=== PATIENT | female | born 1945 | race Caucasian/White ===

== ENCOUNTER → 2017-05-18 05:00 | Outpatient (REF) | payer MEDICARE, OTHER, SELFPAY ==
[2017-05-18 09:34] LABS: Hemoglobin 11.1 g/dl (12.0-15.0); Mean Corpuscular Hgb 27.1 pg (27.0-32.0); Mean Corpuscular Volume 90.2 fL (81-99); Mean Platelet Vol. 10.6 fl (6.2-12.0); Platelet Count 274 K/mm3 (150-450); RBC Distribution Width CV 18.4 % (11.6-14.6); RBC Distribution Width SD 60.9 fl (35.1-43.9); White Blood Count 13.6 K/mm3 (4.4-11.0)
[2017-05-18 09:35] LABS: Scan Indicated on CBC? Y/N NO
[2017-05-18 09:38] LABS: International Normalized Ratio 2.5; Prothrombin Time (Protime)PT. 26.4 SECONDS (11.7-14.9)
[2017-05-18 09:40] LABS: Anion Gap 9 (5-15); BUN 38 mg/dL (7-18); BUN/Creat Ratio 17.9 RATIO (10-20); Chloride 102 mmol/L (98-107); Creatinine, Serum 2.12 mg/dL (0.55-1.02); EST Glomerular Filtration Rate 24 mL/min (>60); Est Glom Filt Rate - Afr Amer 29 mL/min (>60); Glucose 71 mg/dL (70-110); Potassium 4.1 mmol/L (3.5-5.1); Sodium Level 140 mmol/L (136-145)
[2017-05-18 09:53] LABS: Erythrocyte Sedimentation Rate 38 mm/hr (0-30)
== END ==
LOC: OLS.WHLTSB 05:00
PROVIDERS: Visit Provider Family Medicine
DX: I48.91 Unspecified atrial fibrillation (principal); I10 Essential (primary) hypertension; I77.6 Arteritis, unspecified
CPT/HCPCS: 36415; 80048; 85027; 85610; 85652

== ENCOUNTER → 2017-06-17 05:00 | Outpatient (REF) | payer MEDICARE, OTHER, SELFPAY ==
[2017-06-17 08:26] LABS: Hematocrit 33.3 % (37-47); Hemoglobin 10.4 g/dl (12.0-15.0); Mean Corp Hgb Conc 31.2 g/gl (32-36); Mean Corpuscular Hgb 28.2 pg (27.0-32.0); Mean Corpuscular Volume 90.2 fL (81-99); Mean Platelet Vol. 11.1 fl (6.2-12.0); Platelet Count 255 K/mm3 (150-450); RBC Distribution Width CV 18.2 % (11.6-14.6); RBC Distribution Width SD 58.4 fl (35.1-43.9); Red Blood Count 3.69 M/mm3 (4.2-5.4); Scan Indicated on CBC? Y/N NO
[2017-06-17 08:34] LABS: Alanine Aminotransfer ALT/SGPT 17 U/L (13-56); Anion Gap 8 (5-15); BUN 37 mg/dL (7-18); BUN/Creat Ratio 17.6 RATIO (10-20); Calcium,Total 8.1 mg/dL (8.5-10.1); Chloride 100 mmol/L (98-107); EST Glomerular Filtration Rate 25 mL/min (>60); Est Glom Filt Rate - Afr Amer 30 mL/min (>60); Glucose 76 mg/dL (70-110); Potassium 4.1 mmol/L (3.5-5.1); Sodium Level 139 mmol/L (136-145)
[2017-06-17 08:38] LABS: Erythrocyte Sedimentation Rate 42 mm/hr (0-30)
[2017-06-17 09:05] LABS: International Normalized Ratio 3.1
== END ==
LOC: OLS.WHLTSB 05:00
PROVIDERS: Visit Provider Family Medicine
DX: I48.91 Unspecified atrial fibrillation (principal); I10 Essential (primary) hypertension; I67.7 Cerebral arteritis, not elsewhere classified
CPT/HCPCS: 36415; 80048; 84460; 85027; 85610; 85652

== ENCOUNTER → 2017-07-01 05:00 | Outpatient (REF) | payer MEDICARE, OTHER, SELFPAY ==
[2017-07-01 07:40] LABS: International Normalized Ratio 2.4; Prothrombin Time (Protime)PT. 25.5 SECONDS (11.7-14.9)
== END ==
LOC: OLS.WHLTSB 05:00
PROVIDERS: Visit Provider Family Medicine
DX: I48.91 Unspecified atrial fibrillation (principal)
CPT/HCPCS: 36415; 85610

== ENCOUNTER → 2017-07-15 05:00 | Outpatient (REF) | payer MEDICARE, OTHER, SELFPAY ==
[2017-07-15 08:58] LABS: Hematocrit 37.3 % (37-47); Hemoglobin 11.5 g/dl (12.0-15.0); Mean Corp Hgb Conc 30.8 g/gl (32-36); Mean Corpuscular Hgb 27.8 pg (27.0-32.0); Mean Corpuscular Volume 90.1 fL (81-99); Platelet Count 300 K/mm3 (150-450); RBC Distribution Width CV 17.5 % (11.6-14.6); RBC Distribution Width SD 58.1 fl (35.1-43.9); Red Blood Count 4.14 M/mm3 (4.2-5.4); Scan Indicated on CBC? Y/N NO; White Blood Count 14.4 K/mm3 (4.4-11.0)
[2017-07-15 09:03] LABS: Anion Gap 10 (5-15); BUN 40 mg/dL (7-18); BUN/Creat Ratio 18.5 RATIO (10-20); Calcium,Total 7.8 mg/dL (8.5-10.1); Chloride 99 mmol/L (98-107); Creatinine, Serum 2.16 mg/dL (0.55-1.02); EST Glomerular Filtration Rate 24 mL/min (>60); Est Glom Filt Rate - Afr Amer 29 mL/min (>60); Glucose 72 mg/dL (74-106); Potassium 4.1 mmol/L (3.5-5.1); Sodium Level 139 mmol/L (136-145)
[2017-07-15 09:10] LABS: Erythrocyte Sedimentation Rate 21 mm/hr (0-30)
[2017-07-15 09:16] LABS: International Normalized Ratio 2.9; Prothrombin Time (Protime)PT. 30.7 SECONDS (11.7-14.9)
== END ==
LOC: OLS.WHLTSB 05:00
PROVIDERS: Visit Provider Family Medicine
DX: I48.91 Unspecified atrial fibrillation (principal); I10 Essential (primary) hypertension; M31.6 Other giant cell arteritis
CPT/HCPCS: 36415; 80048; 85027; 85610; 85652

== ENCOUNTER → 2017-08-19 05:00 | Outpatient (REF) | payer MEDICARE, OTHER, SELFPAY ==
[2017-08-19 07:41] LABS: Anion Gap 7 (5-15); BUN 39 mg/dL (7-18); BUN/Creat Ratio 18.4 RATIO (10-20); Calcium,Total 7.9 mg/dL (8.5-10.1); Chloride 101 mmol/L (98-107); Creatinine, Serum 2.12 mg/dL (0.55-1.02); EST Glomerular Filtration Rate 24 mL/min (>60); Est Glom Filt Rate - Afr Amer 29 mL/min (>60); Glucose 76 mg/dL (74-106); Hematocrit 34.8 % (37-47); Hemoglobin 10.6 g/dl (12.0-15.0); Mean Corp Hgb Conc 30.5 g/gl (32-36); Mean Corpuscular Hgb 27.2 pg (27.0-32.0); Mean Corpuscular Volume 89.5 fL (81-99); Mean Platelet Vol. 10.7 fl (6.2-12.0); Platelet Count 271 K/mm3 (150-450); Potassium 3.8 mmol/L (3.5-5.1); RBC Distribution Width SD 55.7 fl (35.1-43.9); Red Blood Count 3.89 M/mm3 (4.2-5.4); Sodium Level 141 mmol/L (136-145); White Blood Count 13.4 K/mm3 (4.4-11.0)
[2017-08-19 07:46] LABS: Erythrocyte Sedimentation Rate 42 mm/hr (0-30); Scan Indicated on CBC? Y/N NO
[2017-08-19 07:49] LABS: International Normalized Ratio 2.6; Prothrombin Time (Protime)PT. 28.1 SECONDS (11.7-14.9)
== END ==
LOC: OLS.WHLTSB 05:00
PROVIDERS: Visit Provider Family Medicine
DX: I48.91 Unspecified atrial fibrillation (principal); I10 Essential (primary) hypertension; M31.6 Other giant cell arteritis
CPT/HCPCS: 36415; 80048; 85027; 85610; 85652

== ENCOUNTER → 2017-09-27 05:00 | Outpatient (REF) | payer MEDICARE, OTHER, SELFPAY ==
[2017-09-27 09:23] LABS: International Normalized Ratio 3.1; Prothrombin Time (Protime)PT. 32.4 SECONDS (11.7-14.9)
[2017-09-27 09:26] LABS: Erythrocyte Sedimentation Rate 20 mm/hr (0-30)
== END ==
LOC: OLS.WHLTSB 05:00
PROVIDERS: Visit Provider Family Medicine
DX: I48.91 Unspecified atrial fibrillation (principal); M31.6 Other giant cell arteritis
CPT/HCPCS: 36415; 85610; 85652

== ENCOUNTER → 2017-10-12 05:00 | Outpatient (REF) | payer MEDICARE, OTHER, SELFPAY ==
[2017-10-12 09:39] LABS: International Normalized Ratio 3.1; Prothrombin Time (Protime)PT. 32.4 SECONDS (11.7-14.9)
== END ==
LOC: OLS.WHLTSB 05:00
PROVIDERS: Visit Provider Family Medicine
DX: I48.91 Unspecified atrial fibrillation (principal); Z79.01 Long term (current) use of anticoagulants
CPT/HCPCS: 36415; 85610

== ENCOUNTER → 2017-10-22 05:25 | Outpatient (REF) | payer MEDICARE, OTHER, SELFPAY ==
[2017-10-25 08:50] LABS: Hematocrit 38.4 % (37-47); Hemoglobin 11.8 g/dl (12.0-15.0); Mean Corpuscular Volume 88.7 fL (81-99); Red Blood Count 4.33 M/mm3 (4.2-5.4); White Blood Count 14.2 K/mm3 (4.4-11.0)
[2017-10-25 08:51] LABS: Erythrocyte Sedimentation Rate 54 mm/hr (0-30); International Normalized Ratio 2.2; Mean Corp Hgb Conc 30.7 g/gl (32-36); Mean Corpuscular Hgb 27.3 pg (27.0-32.0); Mean Platelet Vol. 10.8 fl (6.2-12.0); Platelet Count 288 K/mm3 (150-450); Prothrombin Time (Protime)PT. 24.2 SECONDS (11.7-14.9); RBC Distribution Width CV 17.8 % (11.6-14.6); RBC Distribution Width SD 57.9 fl (35.1-43.9); Scan Indicated on CBC? Y/N NO
[2017-10-25 08:56] LABS: BUN 43 mg/dL (7-18); BUN/Creat Ratio 17.3 RATIO (10-20); Chloride 103 mmol/L (98-107); Cholesterol 229 mg/dL (200); Creatinine, Serum 2.49 mg/dL (0.55-1.02); EST Glomerular Filtration Rate 20 mL/min (>60); Est Glom Filt Rate - Afr Amer 24 mL/min (>60); Glucose 80 mg/dL (74-106); Sodium Level 143 mmol/L (136-145); Triglycerides 73 mg/dL; Very Low Density Lipoprotein 15 mg/dL (5-40)
[2017-10-25 08:57] LABS: Anion Gap 11 (5-15); High Density Lipoprotein 88 mg/dL
== END ==
LOC: OLS.WHLTSB 05:25
PROVIDERS: Visit Provider Family Medicine
DX: I48.91 Unspecified atrial fibrillation (principal); I10 Essential (primary) hypertension; E11.9 Type 2 diabetes mellitus without complications; E78.5 Hyperlipidemia, unspecified; E03.9 Hypothyroidism, unspecified; M31.6 Other giant cell arteritis
CPT/HCPCS: 36415; 80048; 80061; 84443; 85027; 85610; 85652

== ENCOUNTER → 2017-11-19 05:00 | Outpatient (REF) | payer MEDICARE, OTHER, SELFPAY ==
[2017-11-19 08:14] LABS: International Normalized Ratio 2.2; Prothrombin Time (Protime)PT. 24.2 SECONDS (11.7-14.9)
[2017-11-19 08:26] LABS: Alanine Aminotransfer ALT/SGPT 17 U/L (13-56); Anion Gap 9 (5-15); BUN 35 mg/dL (7-18); BUN/Creat Ratio 16.1 RATIO (10-20); Calcium,Total 7.9 mg/dL (8.5-10.1); Chloride 104 mmol/L (98-107); Creatinine, Serum 2.17 mg/dL (0.55-1.02); EST Glomerular Filtration Rate 24 mL/min (>60); Est Glom Filt Rate - Afr Amer 29 mL/min (>60); Glucose 78 mg/dL (74-106); Potassium 4.4 mmol/L (3.5-5.1); Sodium Level 145 mmol/L (136-145)
== END ==
LOC: OLS.WHLTSB 05:00
PROVIDERS: Visit Provider Family Medicine
DX: I48.91 Unspecified atrial fibrillation (principal); I10 Essential (primary) hypertension; Z79.01 Long term (current) use of anticoagulants
CPT/HCPCS: 36415; 80048; 84460; 85610

== ENCOUNTER → 2017-12-20 05:00 | Outpatient (REF) | payer MEDICARE, OTHER, SELFPAY ==
[2017-12-20 09:58] LABS: Erythrocyte Sedimentation Rate 38 mm/hr (0-30)
[2017-12-20 10:00] LABS: Hematocrit 37.8 % (37-47); Hemoglobin 11.3 g/dl (12.0-15.0); Mean Corp Hgb Conc 29.9 g/gl (32-36); Mean Corpuscular Hgb 26.7 pg (27.0-32.0); Mean Corpuscular Volume 89.4 fL (81-99); Mean Platelet Vol. 10.8 fl (6.2-12.0); Platelet Count 250 K/mm3 (150-450); RBC Distribution Width CV 17.9 % (11.6-14.6); RBC Distribution Width SD 58.4 fl (35.1-43.9); Red Blood Count 4.23 M/mm3 (4.2-5.4); White Blood Count 12.9 K/mm3 (4.4-11.0)
[2017-12-20 10:01] LABS: International Normalized Ratio 1.9; Prothrombin Time (Protime)PT. 21.9 SECONDS (11.7-14.9); Scan Indicated on CBC? Y/N NO
[2017-12-20 10:02] LABS: Anion Gap 11 (5-15); BUN 36 mg/dL (7-18); BUN/Creat Ratio 16.8 RATIO (10-20); Chloride 103 mmol/L (98-107); Creatinine, Serum 2.14 mg/dL (0.55-1.02); EST Glomerular Filtration Rate 24 mL/min (>60); Est Glom Filt Rate - Afr Amer 29 mL/min (>60); Glucose 79 mg/dL (74-106); Potassium 3.9 mmol/L (3.5-5.1); Sodium Level 146 mmol/L (136-145)
== END ==
LOC: OLS.WHLTSB 05:00
PROVIDERS: Visit Provider Family Medicine
DX: I48.91 Unspecified atrial fibrillation (principal); I10 Essential (primary) hypertension; Z79.01 Long term (current) use of anticoagulants
CPT/HCPCS: 36415; 80048; 85027; 85610; 85652

== ENCOUNTER → 2018-01-18 05:00 | Outpatient (REF) | payer MEDICARE, OTHER, SELFPAY ==
[2018-01-18 09:38] LABS: International Normalized Ratio 2.1; Prothrombin Time (Protime)PT. 23.6 SECONDS (11.7-14.9)
[2018-01-18 09:54] LABS: Erythrocyte Sedimentation Rate 23 mm/hr (0-30)
== END ==
LOC: OLS.WHLTSB 05:00
PROVIDERS: Visit Provider Family Medicine
DX: I48.91 Unspecified atrial fibrillation (principal); M31.6 Other giant cell arteritis
CPT/HCPCS: 36415; 85610; 85652

== ENCOUNTER → 2018-02-17 04:00 | Outpatient (REF) | payer MEDICARE, OTHER, SELFPAY ==
[2018-02-17 07:43] LABS: Hematocrit 32.8 % (37-47); Mean Corp Hgb Conc 30.5 g/gl (32-36); Mean Corpuscular Hgb 27.2 pg (27.0-32.0); Mean Corpuscular Volume 89.1 fL (81-99); Mean Platelet Vol. 11.1 fl (6.2-12.0); Platelet Count 235 K/mm3 (150-450); RBC Distribution Width CV 17.7 % (11.6-14.6); RBC Distribution Width SD 56.4 fl (35.1-43.9); Red Blood Count 3.68 M/mm3 (4.2-5.4); White Blood Count 13.1 K/mm3 (4.4-11.0)
[2018-02-17 07:46] LABS: Scan Indicated on CBC? Y/N NO
[2018-02-17 07:49] LABS: Erythrocyte Sedimentation Rate 28 mm/hr (0-30)
[2018-02-17 08:04] LABS: Alanine Aminotransfer ALT/SGPT 16 U/L (13-56); Anion Gap 9 (5-15); BUN 34 mg/dL (7-18); BUN/Creat Ratio 15.7 RATIO (10-20); Calcium,Total 7.9 mg/dL (8.5-10.1); Chloride 104 mmol/L (98-107); Creatinine, Serum 2.16 mg/dL (0.55-1.02); EST Glomerular Filtration Rate 24 mL/min (>60); Est Glom Filt Rate - Afr Amer 29 mL/min (>60); Glucose 77 mg/dL (74-106); Potassium 4.1 mmol/L (3.5-5.1); Sodium Level 143 mmol/L (136-145); Thyroid Stim Hormone (TSH) 1.13 uIU/mL (0.358-3.74)
[2018-02-17 09:03] LABS: International Normalized Ratio 2.5
== END ==
LOC: OLS.WHLTSB 04:00
PROVIDERS: Visit Provider Family Medicine
DX: I48.91 Unspecified atrial fibrillation (principal); I10 Essential (primary) hypertension; E78.5 Hyperlipidemia, unspecified; E03.9 Hypothyroidism, unspecified; M31.6 Other giant cell arteritis
CPT/HCPCS: 36415; 80048; 84443; 84460; 85027; 85610; 85652

== ENCOUNTER → 2018-03-18 05:00 | Outpatient (REF) | payer MEDICARE, OTHER, SELFPAY ==
[2018-03-18 08:43] LABS: Erythrocyte Sedimentation Rate 36 mm/hr (0-30)
[2018-03-18 09:00] LABS: International Normalized Ratio 2.9; Prothrombin Time (Protime)PT. 30.1 SECONDS (11.7-14.9)
== END ==
LOC: OLS.WHLTSB 05:00
PROVIDERS: Visit Provider Family Medicine
DX: I48.91 Unspecified atrial fibrillation (principal); M31.6 Other giant cell arteritis
CPT/HCPCS: 36415; 85610; 85652

== ENCOUNTER → 2018-04-18 04:00 | Outpatient (REF) | payer MEDICARE, OTHER, SELFPAY ==
[2018-04-18 07:38] LABS: International Normalized Ratio 2.7; Prothrombin Time (Protime)PT. 28.9 SECONDS (11.7-14.9)
[2018-04-18 08:00] LABS: Anion Gap 10 (5-15); BUN 31 mg/dL (7-18); BUN/Creat Ratio 15.4 RATIO (10-20); Calcium,Total 7.9 mg/dL (8.5-10.1); Chloride 105 mmol/L (98-107); Cholesterol 204 mg/dL (200); Creatinine, Serum 2.01 mg/dL (0.55-1.02); EST Glomerular Filtration Rate 26 mL/min (>60); Est Glom Filt Rate - Afr Amer 31 mL/min (>60); Glucose 73 mg/dL (74-106); High Density Lipoprotein 81 mg/dL; Potassium 4.1 mmol/L (3.5-5.1); Sodium Level 145 mmol/L (136-145); Thyroid Stim Hormone (TSH) 0.83 uIU/mL (0.358-3.74); Triglycerides 91 mg/dL; Very Low Density Lipoprotein 18 mg/dL (5-40)
[2018-04-18 08:32] LABS: Erythrocyte Sedimentation Rate 12 mm/hr (0-30)
[2018-04-18 08:33] LABS: Hematocrit 35.4 % (37-47); Hemoglobin 10.5 g/dl (12.0-15.0); Mean Corp Hgb Conc 29.7 g/gl (32-36); Mean Corpuscular Hgb 25.8 pg (27.0-32.0); Mean Platelet Vol. 10.8 fl (6.2-12.0); Platelet Count 256 K/mm3 (150-450); RBC Distribution Width CV 17.5 % (11.6-14.6); RBC Distribution Width SD 55.3 fl (35.1-43.9); Red Blood Count 4.07 M/mm3 (4.2-5.4); White Blood Count 13.3 K/mm3 (4.4-11.0)
[2018-04-18 08:37] LABS: Scan Indicated on CBC? Y/N NO
[2018-04-18 10:39] LABS: Hemoglobin A1c 6.2 % (4.2-6.3)
--- OUTSIDE RECORDS SUMMARY | 2018-06-11 02:29 | XMS RPT_ITS ---
:1945 Author Organization [place] Support Name Relationship Address Phone R Unavailable Unavailable Unavailable Priscilla, Kurt Unavailable / + [place] [id number] Raquel Jeffery Unavailable [address] + [place] [address] R Unavailable Unavailable Unavailable Priscilla, Kurt Unavailable / + [place] [id number] Jeffery García Unavailable [address] + [place] [address] R Unavailable Unavailable Unavailable Priscilla, Kurt Unavailable / + [place] [address] Raquel Jeffery Unavailable [address] + [place] [address] R Unavailable Unavailable Unavailable Priscilla, Kurt Unavailable / + [place] [address] Raquel Jeffery Unavailable [address] + [place] [address] R Unavailable Unavailable Unavailable Priscilla, Kurt Unavailable / + [place] [address] Raquel Jeffery Unavailable [address] + [place] [address] R Unavailable Unavailable Unavailable Priscilla, Kurt Unavailable / + [place] [address] Raquel Jeffery Unavailable [address] + [place] [address] R Unavailable Unavailable Unavailable Priscilla, Kurt Unavailable / + [place] [address] Jeffery García Unavailable [address] + [place] [address] R Unavailable Unavailable Unavailable Priscilla, Kurt Unavailable / + [place] [address] [place], Jeffery Unavailable [address] + [place] [address] R Unavailable Unavailable Unavailable Priscilla, Kurt Unavailable / + [place] [address] [place], Jeffery Unavailable [address] + [place] [address] R Unavailable Unavailable Unavailable Priscilla, Kurt Unavailable / + [place] [address] [place], Jeffery Unavailable [address] + [place] [address] R Unavailable Unavailable Unavailable Priscilla, Kurt Unavailable / + [place] [address] [place], Jeffery Unavailable [address] + [place] [address] R Unavailable Unavailable Unavailable Priscilla, Kurt Unavailable / + [place] [address] [place], Jeffery Unavailable [address] + [place] [address] R Unavailable Unavailable Unavailable Priscilla, Kurt Unavailable / + [place] [address] [place], Jeffery Unavailable [address] + [place] [address] R Unavailable Unavailable Unavailable Priscilla, Kurt Unavailable / + [place] [address] [place], Jeffery Unavailable [address] + [place] [address] R Unavailable Unavailable Unavailable Priscilla, Kurt Unavailable / + [place] [address] [place], Jeffery Unavailable [address] + [place] [address] Care Team Providers Name Role Phone TIANA SOMERS Attending Unavailable TIANA SOMERS Referring Unavailable Nolasco, Reed Attending Unavailable Nolasco, Reed Attending Unavailable Nolasco, Reed Attending Unavailable Nolasco, Reed Attending Unavailable Nolasco, Reed Attending Unavailable Nolasco, Reed Attending Unavailable Nolasco, Reed Attending Unavailable Nolasco, Reed Attending Unavailable Nolasco, Reed Attending Unavailable Nolasco, Reed Attending Unavailable Nolasco, Reed Attending Unavailable Nolasco, Reed Attending Unavailable Nolasco, Reed Attending Unavailable Nolasco, Reed Attending Unavailable Nolasco, Reed Attending Unavailable TIANA SOMERS Attending Unavailable TIANA SOMERS Referring Unavailable TIANA SOMERS Attending Unavailable TIANA SOMERS Referring Unavailable Reed Nolasco Primary Care Unavailable TIANA SOMERS Attending Unavailable GauravReed Primary Care Unavailable PROBLEMS PROBLEMS DATE TYPE CONDITION / CODE ATTENDING STATUS SOURCE 04/28/2018 Unknown I10 - Essential Reed Nolasco (primary) Community hypertension / Hospital I10(ICD-10) Repository 04/28/2018 Unknown E78.5 - Reed Nolasco Active [place] Hyperlipidemia, Community unspecified / Hospital E78.5(ICD-10) Repository 04/28/2018 Unknown E03.9 - Reed Nolasco Active [place] Hypothyroidism, Community unspecified / Hospital E03.9(ICD-10) Repository 03/11/2018 Unknown M19.90 - Unspecified Reed Nolasco Active [place] osteoarthritis, Community unspecified site / Hospital M19.90(ICD-10) Repository 04/13/2018 Unknown I48.91 - Unspecified Reed Nolasco Active [place] atrial fibrillation Community / I48.91(ICD-10) Hospital Repository 04/13/2018 Unknown 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 of Community anticoagulants / Hospital Z79.01(ICD-10) Repository 09/26/2017 Unknown I67.7 - Cerebral Reed Nolasco Active [place] arteritis, not Community elsewhere classified Hospital / I67.7(ICD-10) Repository 06/04/2017 Active Unknown / LIZBET, Active [place] UNK(Unknown) [facility] Other [place] Repository 06/04/2017 Admitting Unknown / LIZBET, Active [facility] diagnosis UNK(Unknown) [facility] Repository PROCEDURES PROCEDURES No Procedure Records FoundRESULTS RESULTS PROTHROMBIN TIME W/INR Collected: 04/18/2018 Status: F Source: [place] 6:00 AM [facility] REPOSITORY TYPE CODE TESTS RESULT OUT OF RANGE REFERENCE UNITS LAB L300.4150 11.7-14.9 SECONDS High PROTIME 28.9 LAB L300.4200 Normal INR 2.7 Performed By: #### L300.3900 #### [place] [facility] [place], [address] BASIC METABOLIC Collected: 04/18/2018 Status: F Source: [place] PROFILE (BMP) 6:00 AM [facility] REPOSITORY TYPE CODE TESTS RESULT OUT OF RANGE REFERENCE UNITS LAB L501.0100 74-106 mg/dL Low GLU 73 Result Comment: Please note revised GLUCOSE reference range effective 2017. LAB L501.1000 7-18 mg/dL High BUN 31 LAB L501.1100 0.55-1.02 mg/dL High CREAT,SERUM 2.01 Result Comment: The validity of the calculated GFR AND GFRAA in patients over 70 years has not been determined. Clinical correlation is essential. LAB L501.1110 >60 mL/min Low EST GFR 26 Result Comment: Non- GFR Calc LAB L501.1115 >60 mL/min Low EST GFR - AA 31 Result Comment: GFR Calc LAB L501.1300 10-20 RATIO Normal BUN/CRE 15.4 LAB L501.2200 8.5-10.1 mg/dL Low CA 7.9 LAB L501.5300 136-145 mmol/L NA Normal 145 LAB L501.5600 3.5-5.1 mmol/L K Normal 4.1 LAB L501.5900 98-107 mmol/L CL Normal 105 LAB L501.6100 21.0-32.0 mmol/L Normal CO2 30.0 LAB L501.6200 5-15 Normal GAP 10 Performed By: #### L500.2500, L500.4100, L501.9520 #### [facility] [address] [place], [address] LIPID PROFILE Collected: 04/18/2018 Status: F Source: [place] 6:00 AM [facility] REPOSITORY TYPE CODE TESTS RESULT OUT OF RANGE REFERENCE UNITS LAB L501.4900 200 mg/dL High CHOL 204 Result Comment: <200 mg/dL Desirable 200-240 mg/dL Borderline >240 mg/dL High Risk LAB L501.5000 mg/dL Normal TRIG 91 Result Comment: The drugs N-Acetylcysteine and Metamizole may falsely depress this assay. Serum Triglycerides Reference Interval Normal <150 mg/dL Borderline high 150 - 199 mg/dL High 200 - 499 mg/dL Very High > or = 500 mg/dL LAB L501.6400 mg/dL Normal HDL 81 Result Comment: The drugs N-Acetylcysteine and Metamizole may falsely depress this assay. Reference Range HDL <40 mg/dL Low HDL Cholesterol HDL >or= 60 mg/dL High HDL Cholesterol LAB L501.6500 0-130 mg/dL Normal LDL 105 LAB L501.6600 5-40 mg/dL Normal VLDL 18 Performed By: #### L500.2500, L500.4100, L501.9520 #### [facility] [address] [place], [place], [id number] THYROID STIM HORMONE Collected: 04/18/2018 Status: F Source: [place] (TSH) 6:00 AM [facility] REPOSITORY TYPE CODE TESTS RESULT OUT OF RANGE REFERENCE UNITS LAB L501.9520 0.358-3.74 uIU/mL Normal TSH 0.83 Performed By: #### L500.2500, L500.4100, L501.9520 #### [facility] [address] [place], [place], [id number] CBC-COMPLETE BLOOD CNT Collected: 04/18/2018 Status: F Source: [place] NO DIFF 6:00 AM [facility] REPOSITORY TYPE CODE TESTS RESULT OUT OF RANGE REFERENCE UNITS LAB L100.1000 4.4-11.0 K/mm3 High WBC 13.3 LAB L100.1200 4.2-5.4 M/mm3 Low RBC 4.07 LAB L100.1300 12.0-15.0 g/dl Low HGB 10.5 LAB L100.1400 37-47 % Low HCT 35.4 LAB L100.1500 81-99 fL Normal MCV 87.0 LAB L100.1600 27.0-32.0 pg Low MCH 25.8 LAB L100.1700 32-36 g/gl Low MCHC 29.7 LAB L100.1810 11.6-14.6 % High RDW CV 17.5 LAB L100.1820 35.1-43.9 fl High RDW SD 55.3 LAB L100.1900 150-450 K/mm3 Normal PLT 256 LAB L100.2000 6.2-12.0 fl Normal MPV 10.8 Performed By: #### L100.0500, L101.9900 #### [facility] [address] [place], [address] ERYTHROCYTE SED RATE Collected: 04/18/2018 Status: F Source: [place] 6:00 AM [facility] REPOSITORY TYPE CODE TESTS RESULT OUT OF RANGE REFERENCE UNITS LAB L102.0000 0-30 mm/hr Normal SED RATE 12 Performed By: #### L100.0500, L101.9900 #### [facility] [address] [place], [address] HEMOGLOBIN A1C Collected: 04/18/2018 Status: F Source: [place] 6:00 AM [facility] REPOSITORY TYPE CODE TESTS RESULT OUT OF RANGE REFERENCE UNITS LAB L501.9985 4.2-6.3 % Normal HGB A1C 6.2 Performed By: #### L501.9985 #### [facility] [address] [place], [address] ERYTHROCYTE SED RATE Collected: 03/18/2018 Status: F Source: [place] 6:50 AM [facility] REPOSITORY Order Comment: 43(ZION) TYPE CODE TESTS RESULT OUT OF RANGE REFERENCE UNITS LAB L102.0000 0-30 mm/hr High SED RATE 36 Performed By: #### L101.9900 #### [facility] [address] [place], [address] PROTHROMBIN TIME W/INR Collected: 03/18/2018 Status: F Source: [place] 6:50 AM [facility] REPOSITORY Order Comment: 43(ZION) TYPE CODE TESTS RESULT OUT OF RANGE REFERENCE UNITS LAB L300.4150 11.7-14.9 SECONDS High PROTIME 30.1 LAB L300.4200 Normal INR 2.9 Performed By: #### L300.3900 #### [facility] [address] [place], [address] PROTHROMBIN TIME W/INR Collected: 02/17/2018 Status: F Source: [place] 8:05 AM [facility] REPOSITORY Order Comment: ROOM 46 TYPE CODE TESTS RESULT OUT OF RANGE REFERENCE UNITS LAB L300.4150 11.7-14.9 SECONDS High PROTIME 27.0 LAB L300.4200 Normal INR 2.5 Performed By: #### L300.3900 #### [facility] [address] [place], [place], [id number] CBC-COMPLETE BLOOD CNT Collected: 02/17/2018 Status: F Source: [place] NO DIFF 6:30 AM [facility] REPOSITORY Order Comment: ROOM 46 TYPE CODE TESTS RESULT OUT OF RANGE REFERENCE UNITS LAB L100.1000 4.4-11.0 K/mm3 High WBC 13.1 LAB L100.1200 4.2-5.4 M/mm3 Low RBC 3.68 LAB L100.1300 12.0-15.0 g/dl Low HGB 10.0 LAB L100.1400 37-47 % Low HCT 32.8 LAB L100.1500 81-99 fL Normal MCV 89.1 LAB L100.1600 27.0-32.0 pg Normal MCH 27.2 LAB L100.1700 32-36 g/gl Low MCHC 30.5 LAB L100.1810 11.6-14.6 % High RDW CV 17.7 LAB L100.1820 35.1-43.9 fl High RDW SD 56.4 LAB L100.1900 150-450 K/mm3 Normal PLT 235 LAB L100.2000 6.2-12.0 fl Normal MPV 11.1 Performed By: #### L100.0500, L101.9900 #### [facility] [address] [facility] [place], [place], [id number] ERYTHROCYTE SED RATE Collected: 02/17/2018 Status: F Source: [place] 6:30 AM [facility] REPOSITORY Order Comment: ROOM 46 TYPE CODE TESTS RESULT OUT OF RANGE REFERENCE UNITS LAB L102.0000 0-30 mm/hr Normal SED RATE 28 Performed By: #### L100.0500, L101.9900 #### [facility] [address] [place], [place], [id number] BASIC METABOLIC Collected: 02/17/2018 Status: F Source: [place] PROFILE (BMP) 6:30 AM [facility] REPOSITORY Order Comment: ROOM 46 TYPE CODE TESTS RESULT OUT OF RANGE REFERENCE UNITS LAB L501.0100 74-106 mg/dL Normal GLU 77 Result Comment: Please note revised GLUCOSE reference range effective 2017. LAB L501.1000 7-18 mg/dL High BUN 34 LAB L501.1100 0.55-1.02 mg/dL High CREAT,SERUM 2.16 Result Comment: The validity of the calculated GFR AND GFRAA in patients over 70 years has not been determined. Clinical correlation is essential. LAB L501.1110 >60 mL/min Low EST GFR 24 Result Comment: Non- GFR Calc LAB L501.1115 >60 mL/min Low EST GFR - AA 29 Result Comment: GFR Calc LAB L501.1300 10-20 RATIO Normal BUN/CRE 15.7 LAB L501.2200 8.5-10.1 mg/dL Low CA 7.9 LAB L501.5300 136-145 mmol/L NA Normal 143 LAB L501.5600 3.5-5.1 mmol/L K Normal 4.1 LAB L501.5900 98-107 mmol/L CL Normal 104 LAB L501.6100 21.0-32.0 mmol/L Normal CO2 30.0 LAB L501.6200 5-15 Normal GAP 9 Performed By: #### L500.2500, L501.4405, L501.9520 #### [facility] [address] [facility] [place], [place], [id number] ALANINE AMINOTRANSFERAS Collected: 02/17/2018 Status: F Source: [place] (SGPT) 6:30 AM [facility] REPOSITORY Order Comment: ROOM 46 TYPE CODE TESTS RESULT OUT OF RANGE REFERENCE UNITS LAB L501.4405 13-56 U/L Normal ALT 16 Performed By: #### L500.2500, L501.4405, L501.9520 #### [facility] [address] [place], [address] THYROID STIM HORMONE Collected: 02/17/2018 Status: F Source: [place] (TSH) 6:30 AM [facility] REPOSITORY Order Comment: ROOM 46 TYPE CODE TESTS RESULT OUT OF RANGE REFERENCE UNITS LAB L501.9520 0.358-3.74 uIU/mL Normal TSH 1.13 Performed By: #### L500.2500, L501.4405, L501.9520 #### [facility] [address] [place], [address] PROGRESS Observed: 2018 Status: COMPLETED Source: [place] 2:08 PM [facility] [place] REPOSITORY O ID: [id number] Author: Tiana Somers Service: (none) Author Type: Physician Type: Progress Notes Filed: 2018 3:28 PM Note Text: PERTINENT CARDIAC HISTORY Atrial fib - paroxysmal CVA - embolic HL HTN Temporal arteritis - 2016 Venous insufficiency ADHERENCE TO GUIDELINES GE-I or ARB for HF with prior LVEF<40 (NQF 0081) - N/A ASA or Plavix for ASHD (NQF 0067) - N/A Beta lili for ASHD with prior [place] or prior LVEF<40 (NQF 0070) - N/A Beta [place]ili for HF with prior LVEF<40 (NQF 0083) - N/A GE-I or ARB for ASHD with DM or prior LVEF<40 (NQF 0066) - N/A Statin therapy for ASHD or FHL or DM - met BMI documented and plan if >25 (NQF 0421) - lifestyle recommendation form Tobacco use screening and referral (NQF 0028) - lifestyle recommendation form Recommendation for whole food, plant based diet - lifestyle recommendation form CLINICAL IMPRESSION/PLAN: Kumar García is doing well. Atrial fibrillation is under good control. She is is advised to continue her amiodarone at low dose. She will have TSH and ALT for follow-up of possible toxicity. I encouraged her to continue her other medication. She is on an adequate dose of diuretic. She should continue to have regular eye examinations. I will see her in 6 months or as needed. Written and verbal health teaching given to patient, patient verbalizes understanding and agrees with treatment plan. DIAGNOSIS FOR VISIT: PAF Hypertension HISTORY OF PRESENT ILLNESS Kumar García returns for follow-up of her atrial fibrillation and hypertension. She reports stable exercise tolerance. Her confirms that she has had no recent symptoms of chest pain or shortness of breath. Her ankle edema has been stable. She's had no weeping. She denies recurrent TIAs. She's had no sensation of palpitations. ALLERGIES: ALLERGIES Allergen Reactions - Penicillins - Septra [Sulfamethox* CURRENT OUTPATIENT MEDICATIONS: furosemide (LASIX) 20 mg tablet Take 1 tablet by mouth twice daily. enalapril (VASOTEC) 5 mg tablet Take 0.5 tablets by mouth once daily. omeprazole (PRILOSEC) 20 mg capsule Take 20 mg by mouth once daily. alendronate (FOSAMAX) 35 mg tablet Take 35 mg by mouth once each week. traMADol (ULTRAM) 50 mg tablet Take 50 mg by mouth at bedtime as needed. loperamide (IMODIUM) 2 mg cap(s) Take 2 mg by mouth four times daily as needed. metoprolol tartrate, short acting, (LOPRESSOR) 50 mg tablet Take 0.5 tablets by mouth twice daily. ammonium lactate (LAC-HYDRIN) 12 % cream Apply to affected area as needed. sertraline (ZOLOFT) 100 mg tablet Take 100 mg by mouth once daily. predniSONE (DELTASONE) 20 mg tablet Take 20 mg by mouth twice daily. buPROPion SR (ZYBAN SR; WELLBUTRIN SR) 150 mg 12 hr tablet Take 150 mg by mouth once daily. warfarin (COUMADIN) 1 mg tablet Take as directed ACETAMINOPHEN (TYLENOL ORAL) Take 500 mg by mouth every 6 hours as needed. One to 2 tablets levothyroxine (SYNTHROID) 88 mcg tablet Take 1 tablet by mouth daily before breakfast. pravastatin (PRAVACHOL) 20 mg tablet Take 1 tablet by mouth daily at bedtime. amiodarone (CORDARONE) 200 mg tablet Take 0.5 tablets by mouth once daily. Cholecalciferol, Vitamin D3, 2,000 unit tab Take 1,000 Units by mouth once daily. simethicone, chewable (MYLICON) 80 mg chewable tablet Take 80 mg by mouth every 6 hours as needed. metFORMIN (GLUCOPHAGE) 500 mg tablet Take 500 mg by mouth daily with dinner. senna (SENOKOT) 8.6 mg tab Take 8.6 mg by mouth twice daily as needed. INSULIN DETEMIR (LEVEMIR SUBCUTANEOUS) Inject 100 Units subcutaneously every evening. CALCIUM CARBONATE/VITAMIN D3 (VITAMIN D-3 ORAL) Take 1,000 Units by mouth once daily. IRON POLYSACCHARIDE COMPLEX (FERREX 150 ORAL) Take by mouth. insulin aspart (NOVOLOG) 100 unit/mL soln Inject subcutaneously once daily. Sliding scale citalopram (CELEXA) 20 mg tablet Take 1/2 a tab by mouth daily for 10 days then one a day. warfarin (COUMADIN) 4 mg tablet HOLD warfarin (COUMADIN) 3 mg tablet HOLD hydrochlorothiazide (HYDRODIURIL, ESIDRIX) 25 mg tablet Take 1 tablet by mouth once daily. Calcium Citrate-Vitamin D3 630-400 mg-unit Take 1 tablet by mouth once daily. Ferrous Sulfate (IRON) 27 mg iron tab Take 1 tablet by mouth once daily. PHYSICAL EXAMINATION: VITAL SIGNS: BP 140/77 Pulse 80 Chest: Clear to auscultation. Trachea is midline. Air entry is equal. Cardiac: Regular rhythm. S1 and S2 are normal. PMI is nondisplaced. There is a soft systolic ejection. Carotids are brisk without bruits. JVP is less than 10 cm. Abdomen: Soft and nontender. There are no pulsatile masses or bruits. No liver enlargement. Bowel sounds are active. Extremities: 2 plus edema. Legs are wrapped. There is no weeping. Pulses are difficult to feel due to the wrap. Recent labs were reviewed. Renal function is moderately impaired, but stable. ALT and TSH has not recently been performed. EKG shows sinus rhythm and is unchanged from 10/26/16. Electronically Signed: Tiana Somers MD 2018 2:08 PM CC: Reed Nolasco MD EKG1 Observed: 2018 Status: F Source: [place] 1:51 PM [facility] REPOSITORY NAME : KUMAR GARCÍA PID : [id number] : 1945 Gender : Female Race : ORD : Procedure Date : 2018 13:51:05 Edit Date : Feb 03 2018 08:30:44 Diagnosis:NORMAL SINUS RHYTHM STUDY DONE SITTING BORDERLINE ECG NO SIGNIFICANT CHANGE FROM PREVIOUS ECG Confirmed by TIANA SOMERS MD ([id number]) on 02/03/2018 8:30:41 AM Ventricular Rate : 74 BPM Atrial Rate : 74 BPM P-R Interval : 170 ms QRS Duration : 72 ms Q-T Interval : 412 ms QTC Calculation(Bezet) : 457 ms P [place] : 12 degrees R [place] : -3 degrees T [place] : 14 degrees Test Reason : Location : 136 : [place] Overread By : TIANA SOMERS MD Edited By : TIANA SOMERS MD Referred By : TIANA SOMERS Acquired by : HUMBERTO AG Observed: 2018 Status: COMPLETED Source: [place] 1:30 PM [facility] REPOSITORY Office Visit (CAWSTR) KUMAR GARCÍA ([id number]) 1945 F Date Time Provider Department 02/02/18 1:30 PM TIANA SOMERS During your visit today, we recorded the following information about you: Pulse Blood pressure 80/minute 140/77 Tiana Somers MD 2018 3:28 PM Signed PERTINENT CARDIAC HISTORY Atrial fib - paroxysmal CVA - embolic HL HTN Temporal arteritis - 2016 Venous insufficiency ADHERENCE TO GUIDELINES GE-I or ARB for HF with prior LVEF<40 (NQF 0081) - N/A ASA or Plavix for ASHD (NQF 0067) - N/A Beta lili for ASHD with prior [place] or prior LVEF<40 (NQF 0070) - N/A Beta lili for HF with prior LVEF<40 (NQF 0083) - N/A GE-I or ARB for ASHD with DM or prior LVEF<40 (NQF 0066) - N/A Statin therapy for ASHD or FHL or DM - met BMI documented and plan if >25 (NQF 0421) - lifestyle recommendation form Tobacco use screening and referral (NQF 0028) - lifestyle recommendation form Recommendation for whole food, plant based diet - lifestyle recommendation form CLINICAL IMPRESSION/PLAN: Kumar García is doing well. Atrial fibrillation is under good control. She is is advised to continue her amiodarone at low dose. She will have TSH and ALT for follow-up of possible toxicity. I encouraged her to continue her other medication. She is on an adequate dose of diuretic. She should continue to have regular eye examinations. I will see her in 6 months or as needed. Written and verbal health teaching given to patient, patient verbalizes understanding and agrees with treatment plan. DIAGNOSIS FOR VISIT: PAF Hypertension HISTORY OF PRESENT ILLNESS Kumar García returns for follow-up of her atrial fibrillation and hypertension. She reports stable exercise tolerance. Her confirms that she has had no recent symptoms of chest pain or shortness of breath. Her ankle edema has been stable. She's had no weeping. She denies recurrent TIAs. She's had no sensation of palpitations. ALLERGIES: ALLERGIES Allergen Reactions - Penicillins - Septra [Sulfamethox* CURRENT OUTPATIENT MEDICATIONS: furosemide (LASIX) 20 mg tablet Take 1 tablet by mouth twice daily. enalapril (VASOTEC) 5 mg tablet Take 0.5 tablets by mouth once daily. omeprazole (PRILOSEC) 20 mg capsule Take 20 mg by mouth once daily. alendronate (FOSAMAX) 35 mg tablet Take 35 mg by mouth once each week. traMADol (ULTRAM) 50 mg tablet Take 50 mg by mouth at bedtime as needed. loperamide (IMODIUM) 2 mg cap(s) Take 2 mg by mouth four times daily as needed. metoprolol tartrate, short acting, (LOPRESSOR) 50 mg tablet Take 0.5 tablets by mouth twice daily. ammonium lactate (LAC-HYDRIN) 12 % cream Apply to affected area as needed. sertraline (ZOLOFT) 100 mg tablet Take 100 mg by mouth once daily. predniSONE (DELTASONE) 20 mg tablet Take 20 mg by mouth twice daily. buPROPion SR (ZYBAN SR; WELLBUTRIN SR) 150 mg 12 hr tablet Take 150 mg by mouth once daily. warfarin (COUMADIN) 1 mg tablet Take as directed ACETAMINOPHEN (TYLENOL ORAL) Take 500 mg by mouth every 6 hours as needed. One to 2 tablets levothyroxine (SYNTHROID) 88 mcg tablet Take 1 tablet by mouth daily before breakfast. pravastatin (PRAVACHOL) 20 mg tablet Take 1 tablet by mouth daily at bedtime. amiodarone (CORDARONE) 200 mg tablet Take 0.5 tablets by mouth once daily. Cholecalciferol, Vitamin D3, 2,000 unit tab Take 1,000 Units by mouth once daily. simethicone, chewable (MYLICON) 80 mg chewable tablet Take 80 mg by mouth every 6 hours as needed. metFORMIN (GLUCOPHAGE) 500 mg tablet Take 500 mg by mouth daily with dinner. senna (SENOKOT) 8.6 mg tab Take 8.6 mg by mouth twice daily as needed. INSULIN DETEMIR (LEVEMIR SUBCUTANEOUS) Inject 100 Units subcutaneously every evening. CALCIUM CARBONATE/VITAMIN D3 (VITAMIN D-3 ORAL) Take 1,000 Units by mouth once daily. IRON POLYSACCHARIDE COMPLEX (FERREX 150 ORAL) Take by mouth. insulin aspart (NOVOLOG) 100 unit/mL soln Inject subcutaneously once daily. Sliding scale citalopram (CELEXA) 20 mg tablet Take 1/2 a tab by mouth daily for 10 days then one a day. warfarin (COUMADIN) 4 mg tablet HOLD warfarin (COUMADIN) 3 mg tablet HOLD hydrochlorothiazide (HYDRODIURIL, ESIDRIX) 25 mg tablet Take 1 tablet by mouth once daily. Calcium Citrate-Vitamin D3 630-400 mg-unit Take 1 tablet by mouth once daily. Ferrous Sulfate (IRON) 27 mg iron tab Take 1 tablet by mouth once daily. PHYSICAL EXAMINATION: VITAL SIGNS: BP 140/77 Pulse 80 Chest: Clear to auscultation. Trachea is midline. Air entry is equal. Cardiac: Regular rhythm. S1 and S2 are normal. PMI is nondisplaced. There is a soft systolic ejection. Carotids are brisk without bruits. JVP is less than 10 cm. Abdomen: Soft and nontender. There are no pulsatile masses or bruits. No liver enlargement. Bowel sounds are active. Extremities: 2 plus edema. Legs are wrapped. There is no weeping. Pulses are difficult to feel due to the wrap. Recent labs were reviewed. Renal function is moderately impaired, but stable. ALT and TSH has not recently been performed. EKG shows sinus rhythm and is unchanged from 10/26/16. Electronically Signed: Tiana Somers MD 2018 2:08 PM CC: MD Tiana Feliz MD 2018 2:09 PM Signed LIFESTYLE CHANGE A healthy lifestyle is the most important component of your overall treatment plan. Please give serious thought to the following areas and commit to making fdc changes. EAT A WHOLE FOOD, PLANT BASED DIET The nutrition your body gets is more important than the medicine you take. What matters most is the overall way you eat. We encourage you to minimize the use of animal products (which include dairy and all meats except fatty fish) and use whole, unprocessed plant foods to provide your protein, vitamins and other nutrients. We have a lot of information to share with you on this topic. This is not a diet. It is a way of life that you will keep with you. EXERCISE REGULARLY It is not important to spend hours in the gym, lifting weights and perspiring heavily. A total of 2-3 hours per week of aerobic (causing you to be moderately short of breath) exercise is sufficient to improve your health. Talk to us before you begin a new exercise program, if you have heart disease or experience shortness of breath or chest pain. REDUCE STRESS Chronic emotional and physical stress leads to disease. Ways of reducing stress include meditation, visualization, prayer, yoga and other forms of relaxation therapy. Consistency is the chaparro. Find a technique that works for you and do it every day. CULTIVATE RELATIONSHIPS Loneliness and isolation have a major negative impact on health. Seek out others who can love, care for and nurture you. Avoid hurtful relationships. MAINTAIN IDEAL BODY WEIGHT The best way to do this is to do all the things above. Our bodies naturally find the right weight if we keep moving and feed ourselves the right food. If your BMI is greater than 25, we strongly recommend a referral to a weight management program. Please speak to us or your family physician about available programs. AVOID NICOTINE IN ALL FORMS This includes all tobacco products, whether chewed, smoked, vaped, or rubbed on the skin. Smoking cessation programs, which can make use of tobacco substitutes, medications to suppress cravings and behavior management, are available. Please contact your family physician about programs in your area. Mark Anthony Reyes RN 02/04/2018 8:34 AM Signed [facility] Referring Provider: TIANA SOMERS [[id number]] Allergies As of Date: 2018 Noted Allergy Reaction PENICILLINS 05/27/2005 SEPTRA (SULFAMETHOXAZOLE-TRIMETHO*05/27/2005 Date Reviewed: 2018 Reviewed by: Mark Anthony Reyes RN - Fully Assessed Reason for Visit: Recheck [92] Primary Visit Diagnosis:PAF (paroxysmal atrial fibrillation) ([facility]) [I48.0] Other Visit Diagnoses:Chronic diastolic CHF (congestive heart failure) ([facility]) [I50.32] Hypertension, essential [I10] Order(s):ECG COMPLETE W INTERPRETATION [ECG01] Order #: [id number] FUTURE Prescriptions as of 2018 Sig: FUROSEMIDE 20 MG TABLET Take 1 tablet by mouth twice * ENALAPRIL MALEATE 5 MG TABLET Take 0.5 tablets by mouth onc* OMEPRAZOLE 20 MG CAPSULE,MARLENE* Take 20 mg by mouth once rhonda* ALENDRONATE 35 MG TABLET Take 35 mg by mouth once each* TRAMADOL 50 MG TABLET Take 50 mg by mouth at bedtim* LOPERAMIDE 2 MG CAPSULE Take 2 mg by mouth four times* METOPROLOL TARTRATE 50 MG TAB* Take 0.5 tablets by mouth twi* AMMONIUM LACTATE 12 % TOPICAL* Apply to affected area as ne* SERTRALINE 100 MG TABLET Take 100 mg by mouth once ayala* PREDNISONE 20 MG TABLET Take 20 mg by mouth twice ayala* BUPROPION HCL SR 150 MG TABLE* Take 150 mg by mouth once ayala* WARFARIN 1 MG TABLET Take as directed TYLENOL ORAL Take 500 mg by mouth every 6 * LEVOTHYROXINE 88 MCG TABLET Take 1 tablet by mouth daily * PRAVASTATIN 20 MG TABLET Take 1 tablet by mouth daily * AMIODARONE 200 MG TABLET Take 0.5 tablets by mouth onc* CHOLECALCIFEROL (VITAMIN D3) * Take 1,000 Units by mouth onc* SIMETHICONE 80 MG CHEWABLE TA* Take 80 mg by mouth every 6 h* METFORMIN 500 MG TABLET Take 500 mg by mouth daily wi* SENNOSIDES 8.6 MG TABLET Take 8.6 mg by mouth twice da* LEVEMIR SUBCUTANEOUS Inject 100 Units subcutaneous* VITAMIN D-3 ORAL Take 1,000 Units by mouth onc* FERREX 150 ORAL Take by mouth. INSULIN ASPART U-100 100 UNI* Inject subcutaneously once d* CITALOPRAM 20 MG TABLET Take 1/2 a tab by mouth daily* Patient not taking: Reported on 2018 WARFARIN 4 MG TABLET HOLD WARFARIN 3 MG TABLET HOLD HYDROCHLOROTHIAZIDE 25 MG TAB* Take 1 tablet by mouth once d* Patient not taking: Reported on 2018 CALCIUM CITRATE-VITAMIN D 630* Take 1 tablet by mouth once d* FERROUS SULFATE 27 MG IRON TA* Take 1 tablet by mouth once d* Patient not taking: Reported on 2018 Medication notes this encounter PREDNISONE 20 MG TABLET >> Mark Anthony Reyes RN 2018 1:47 PM >> MARK ANTHONY REYES RN WedFeb 02, 2018 1:47 PM 15mg daily More... Problem List As Of Date 2018 Noted Resolved Calculus of gallbladder without mention of chol* 02/19/2012 More... Benign Neoplasm of Colon [D12.6] INVALID FOR* Priority: C More... More... Encounter for routine gynecological examination*INVALID FOR* Priority: D Class: Chronic More... Essential hypertension, benign [I10] INVALID FOR* Priority: A More... Obesity [E66.9] Priority: B Mixed stress and urge urinary incontinence [N39* Priority: C Cerebral infarction (HCC) [I63.9] INVALID FOR* Priority: A More... Atrial fibrillation [I48.91] INVALID FOR* Priority: A More... Hypothyroidism (acquired) [E03.9] INVALID FOR* Priority: A Hyperlipidemia [E78.5] INVALID FOR* Priority: A Rash of unknown cause [R21] INVALID FOR* Iron deficiency anemia [D50.9] INVALID FOR* Priority: A More... Temporal arteritis (HCC) [M31.6] INVALID FOR* Priority: A Bilateral leg edema [R60.0] INVALID FOR* Depression [F32.9] INVALID FOR* Chronic diastolic CHF (congestive heart failure*INVALID FOR* Other instructions from your clinician: LIFESTYLE CHANGE A healthy lifestyle is the most important component of your overall treatment plan. Please give serious thought to the following areas and commit to making fdc changes. EAT A WHOLE FOOD, PLANT BASED DIET The nutrition your body gets is more important than the medicine you take. What matters most is the overall way you eat. We encourage you to minimize the use of animal products (which include dairy and all meats except fatty fish) and use whole, unprocessed plant foods to provide your protein, vitamins and other nutrients. We have a lot of information to share with you on this topic. This is not a diet. It is a way of life that you will keep with you. EXERCISE REGULARLY It is not important to spend hours in the gym, lifting weights and perspiring heavily. A total of 2-3 hours per week of aerobic (causing you to be moderately short of breath) exercise is sufficient to improve your health. Talk to us before you begin a new exercise program, if you have heart disease or experience shortness of breath or chest pain. REDUCE STRESS Chronic emotional and physical stress leads to disease. Ways of reducing stress include meditation, visualization, prayer, yoga and other forms of relaxation therapy. Consistency is the chaparro. Find a technique that works for you and do it every day. CULTIVATE RELATIONSHIPS Loneliness and isolation have a major negative impact on health. Seek out others who can love, care for and nurture you. Avoid hurtful relationships. MAINTAIN IDEAL BODY WEIGHT The best way to do this is to do all the things above. Our bodies naturally find the right weight if we keep moving and feed ourselves the right food. If your BMI is greater than 25, we strongly recommend a referral to a weight management program. Please speak to us or your family physician about available programs. AVOID NICOTINE IN ALL FORMS This includes all tobacco products, whether chewed, smoked, vaped, or rubbed on the skin. Smoking cessation programs, which can make use of tobacco substitutes, medications to suppress cravings and behavior management, are available. Please contact your family physician about programs in your area. Visit Notes: >> Mark Anthony Reyes RN Fri Feb 04, 2018 8:34 AM Status: Signed Copy of office visit note sent to [facility] Mark Anthony Reyes RN Follow-up and Disposition History Recorded Encounter Status:Closed by TIANA SOMERS MD on 02/02/18 CNNURSE Observed: 2018 Status: COMPLETED Source: [place] 11:30 AM [facility] REPOSITORY Nurse Visit ([facility]) KUMAR GARCÍA ([id number]) 1945 F Date Time Provider Department 02/02/18 11:30 AM NURSE CARD ADMIN [facility] During your visit today, we recorded the following information about you: Referring Provider: TIANA SOMERS [[id number]] Allergies As of Date: 2018 Noted Allergy Reaction PENICILLINS 05/27/2005 SEPTRA (SULFAMETHOXAZOLE-TRIMETHO*05/27/2005 Date Reviewed: 2018 Reviewed by: Mark Anthony Reyes RN - Fully Assessed Reason for Visit: Nurse Visit [792] Visit Diagnoses:PAF (paroxysmal atrial fibrillation) ([facility]) [I48.0] Chronic diastolic CHF (congestive heart failure) ([facility]) [I50.32] Hypertension, essential [I10] Prescriptions as of 2018 Sig: FUROSEMIDE 20 MG TABLET Take 1 tablet by mouth twice * ENALAPRIL MALEATE 5 MG TABLET Take 0.5 tablets by mouth onc* OMEPRAZOLE 20 MG CAPSULE,MARLENE* Take 20 mg by mouth once rhonda* ALENDRONATE 35 MG TABLET Take 35 mg by mouth once each* TRAMADOL 50 MG TABLET Take 50 mg by mouth at bedtim* SIMETHICONE 80 MG CHEWABLE TA* Take 80 mg by mouth every 6 h* LOPERAMIDE 2 MG CAPSULE Take 2 mg by mouth four times* METFORMIN 500 MG TABLET Take 500 mg by mouth daily wi* METOPROLOL TARTRATE 50 MG TAB* Take 0.5 tablets by mouth twi* SENNOSIDES 8.6 MG TABLET Take 8.6 mg by mouth twice da* AMMONIUM LACTATE 12 % TOPICAL* Apply to affected area as ne* LEVEMIR SUBCUTANEOUS Inject 100 Units subcutaneous* VITAMIN D-3 ORAL Take 1,000 Units by mouth onc* SERTRALINE 100 MG TABLET Take 100 mg by mouth once ayala* PREDNISONE 20 MG TABLET Take 20 mg by mouth twice ayala* FERREX 150 ORAL Take by mouth. BUPROPION HCL SR 150 MG TABLE* Take 150 mg by mouth once ayala* INSULIN ASPART U-100 100 UNI* Inject subcutaneously once d* WARFARIN 1 MG TABLET Take as directed CITALOPRAM 20 MG TABLET Take 1/2 a tab by mouth daily* Patient not taking: Reported on 2018 WARFARIN 4 MG TABLET HOLD WARFARIN 3 MG TABLET HOLD TYLENOL ORAL Take 500 mg by mouth every 6 * LEVOTHYROXINE 88 MCG TABLET Take 1 tablet by mouth daily * PRAVASTATIN 20 MG TABLET Take 1 tablet by mouth daily * HYDROCHLOROTHIAZIDE 25 MG TAB* Take 1 tablet by mouth once d* Patient not taking: Reported on 2018 AMIODARONE 200 MG TABLET Take 0.5 tablets by mouth onc* CALCIUM CITRATE-VITAMIN D 630* Take 1 tablet by mouth once d* CHOLECALCIFEROL (VITAMIN D3) * Take 1,000 Units by mouth onc* FERROUS SULFATE 27 MG IRON TA* Take 1 tablet by mouth once d* Patient not taking: Reported on 2018 More... Problem List As Of Date 2018 Noted Resolved Calculus of gallbladder without mention of chol* 02/19/2012 More... Benign Neoplasm of Colon [D12.6] INVALID FOR* Priority: C More... More... Encounter for routine gynecological examination*INVALID FOR* Priority: D Class: Chronic More... Essential hypertension, benign [I10] INVALID FOR* Priority: A More... Obesity [E66.9] Priority: B Mixed stress and urge urinary incontinence [N39* Priority: C Cerebral infarction (HCC) [I63.9] INVALID FOR* Priority: A More... Atrial fibrillation [I48.91] INVALID FOR* Priority: A More... Hypothyroidism (acquired) [E03.9] INVALID FOR* Priority: A Hyperlipidemia [E78.5] INVALID FOR* Priority: A Rash of unknown cause [R21] INVALID FOR* Iron deficiency anemia [D50.9] INVALID FOR* Priority: A More... Temporal arteritis (HCC) [M31.6] INVALID FOR* Priority: A Bilateral leg edema [R60.0] INVALID FOR* Depression [F32.9] INVALID FOR* Chronic diastolic CHF (congestive heart failure*INVALID FOR* Encounter Status:Closed by MARK ANTHONY REYES RN on 02/03/18 PROTHROMBIN TIME W/INR Collected: 01/18/2018 Status: F Source: [place] 6:10 AM [facility] REPOSITORY TYPE CODE TESTS RESULT OUT OF RANGE REFERENCE UNITS LAB L300.4150 11.7-14.9 SECONDS High PROTIME 23.6 LAB L300.4200 Normal INR 2.1 Performed By: #### L300.3900 #### [facility] [address] [place], [place], [address] [phone] ERYTHROCYTE SED RATE Collected: 01/18/2018 Status: F Source: [place] 6:10 AM [facility] REPOSITORY TYPE CODE TESTS RESULT OUT OF RANGE REFERENCE UNITS LAB L102.0000 0-30 mm/hr Normal SED RATE 23 Performed By: #### L101.9900 #### [facility] [address] [place], [address] ERYTHROCYTE SED RATE Collected: 12/20/2017 Status: F Source: [place] 6:40 AM [facility] REPOSITORY Order Comment: 46 TYPE CODE TESTS RESULT OUT OF RANGE REFERENCE UNITS LAB L102.0000 0-30 mm/hr High SED RATE 38 Performed By: #### L101.9900, L100.0500 #### [facility] [address] [place], [place], [id number] CBC-COMPLETE BLOOD CNT Collected: 12/20/2017 Status: F Source: [place] NO DIFF 6:40 AM [facility] REPOSITORY Order Comment: 46 TYPE CODE TESTS RESULT OUT OF RANGE REFERENCE UNITS LAB L100.1000 4.4-11.0 K/mm3 High WBC 12.9 LAB L100.1200 4.2-5.4 M/mm3 Normal RBC 4.23 LAB L100.1300 12.0-15.0 g/dl Low HGB 11.3 LAB L100.1400 37-47 % Normal HCT 37.8 LAB L100.1500 81-99 fL Normal MCV 89.4 LAB L100.1600 27.0-32.0 pg Low MCH 26.7 LAB L100.1700 32-36 g/gl Low MCHC 29.9 LAB L100.1810 11.6-14.6 % High RDW CV 17.9 LAB L100.1820 35.1-43.9 fl High RDW SD 58.4 LAB L100.1900 150-450 K/mm3 Normal PLT 250 LAB L100.2000 6.2-12.0 fl Normal MPV 10.8 Performed By: #### L101.9900, L100.0500 #### [facility] [address] [place], [place], [address] BASIC METABOLIC Collected: 12/20/2017 Status: F Source: [place] PROFILE (BMP) 6:40 AM [facility] REPOSITORY Order Comment: 46 TYPE CODE TESTS RESULT OUT OF RANGE REFERENCE UNITS LAB L501.0100 74-106 mg/dL Normal GLU 79 Result Comment: Please note revised GLUCOSE reference range effective 2017. LAB L501.1000 7-18 mg/dL High BUN 36 LAB L501.1100 0.55-1.02 mg/dL High CREAT,SERUM 2.14 Result Comment: The validity of the calculated GFR AND GFRAA in patients over 70 years has not been determined. Clinical correlation is essential. LAB L501.1110 >60 mL/min Low EST GFR 24 Result Comment: Non- GFR Calc LAB L501.1115 >60 mL/min Low EST GFR - AA 29 Result Comment: GFR Calc LAB L501.1300 10-20 RATIO Normal BUN/CRE 16.8 LAB L501.2200 8.5-10.1 mg/dL Low CA 8.0 LAB L501.5300 136-145 mmol/L High NA 146 LAB L501.5600 3.5-5.1 mmol/L K Normal 3.9 LAB L501.5900 98-107 mmol/L CL Normal 103 LAB L501.6100 21.0-32.0 mmol/L Normal CO2 32.0 LAB L501.6200 5-15 Normal GAP 11 Performed By: #### L500.2500 #### [facility] [address] [place], [address] PROTHROMBIN TIME W/INR Collected: 12/20/2017 Status: F Source: [place] 6:40 AM [facility] REPOSITORY Order Comment: 46 TYPE CODE TESTS RESULT OUT OF RANGE REFERENCE UNITS LAB L300.4150 11.7-14.9 SECONDS High PROTIME 21.9 LAB L300.4200 Normal INR 1.9 Performed By: #### L300.3900 #### [facility] [address] [place], [address] PROTHROMBIN TIME W/INR Collected: 11/19/2017 Status: F Source: [place] 7:00 AM [facility] REPOSITORY Order Comment: ROOM 46 TYPE CODE TESTS RESULT OUT OF RANGE REFERENCE UNITS LAB L300.4150 11.7-14.9 SECONDS High PROTIME 24.2 LAB L300.4200 Normal INR 2.2 Performed By: #### L300.3900 #### [facility] [address] [place], [address] BASIC METABOLIC Collected: 11/19/2017 Status: F Source: [place] PROFILE (BMP) 7:00 AM [facility] REPOSITORY Order Comment: ROOM 46 TYPE CODE TESTS RESULT OUT OF RANGE REFERENCE UNITS LAB L501.0100 74-106 mg/dL Normal GLU 78 Result Comment: Please note revised GLUCOSE reference range effective 2017. LAB L501.1000 7-18 mg/dL High BUN 35 LAB L501.1100 0.55-1.02 mg/dL High CREAT,SERUM 2.17 Result Comment: The validity of the calculated GFR AND GFRAA in patients over 70 years has not been determined. Clinical correlation is essential. LAB L501.1110 >60 mL/min Low EST GFR 24 Result Comment: Non- GFR Calc LAB L501.1115 >60 mL/min Low EST GFR - AA 29 Result Comment: GFR Calc LAB L501.1300 10-20 RATIO Normal BUN/CRE 16.1 LAB L501.2200 8.5-10.1 mg/dL Low CA 7.9 LAB L501.5300 136-145 mmol/L NA Normal 145 LAB L501.5600 3.5-5.1 mmol/L K Normal 4.4 LAB L501.5900 98-107 mmol/L CL Normal 104 LAB L501.6100 21.0-32.0 mmol/L Normal CO2 32.0 LAB L501.6200 5-15 Normal GAP 9 Performed By: #### L500.2500, L501.4405 #### [facility] [address] [place], [address] ALANINE AMINOTRANSFERAS Collected: 11/19/2017 Status: F Source: [place] (SGPT) 7:00 AM [facility] REPOSITORY Order Comment: ROOM 46 TYPE CODE TESTS RESULT OUT OF RANGE REFERENCE UNITS LAB L501.4405 13-56 U/L Normal ALT 17 Performed By: #### L500.2500, L501.4405 #### [facility] [address] [place], [address] HEMOGLOBIN A1C Collected: 11/02/2017 Status: F Source: [place] 6:35 AM [facility] REPOSITORY Order Comment: REDRAW, HgA1C WAS MISSED FROM 10/22/17 LABS TYPE CODE TESTS RESULT OUT OF RANGE REFERENCE UNITS LAB L501.9985 4.2-6.3 % Normal HGB A1C 6.0 Performed By: #### L501.9985 #### [facility] [address] [place], [address] BASIC METABOLIC Collected: 10/22/2017 Status: F Source: [place] PROFILE (BMP) 5:25 AM [facility] REPOSITORY Order Comment: RESULT(S) PREVIOUSLY REPORTED ON MANUAL REQUISITION DURING DOWNTIME. TYPE CODE TESTS RESULT OUT OF RANGE REFERENCE UNITS LAB L501.0100 74-106 mg/dL Normal GLU 80 Result Comment: Please note revised GLUCOSE reference range effective 2017. LAB L501.1000 7-18 mg/dL High BUN 43 LAB L501.1100 0.55-1.02 mg/dL High CREAT,SERUM 2.49 Result Comment: The validity of the calculated GFR AND GFRAA in patients over 70 years has not been determined. Clinical correlation is essential. LAB L501.1110 >60 mL/min Low EST GFR 20 LAB L501.1115 >60 mL/min Low EST GFR - AA 24 LAB L501.1300 10-20 RATIO Normal BUN/CRE 17.3 LAB L501.2200 8.5-10.1 mg/dL Low CA 8.0 LAB L501.5300 136-145 mmol/L Normal NA 143 LAB L501.5600 3.5-5.1 mmol/L Normal K 4.0 LAB L501.5900 98-107 mmol/L Normal CL 103 LAB L501.6100 21.0-32.0 mmol/L Normal CO2 29.0 LAB L501.6200 5-15 Normal GAP 11 Performed By: #### L500.2500, L500.4100, L501.9520 #### [facility] [address] [place], [address] LIPID PROFILE Collected: 10/22/2017 Status: F Source: [place] 5:25 AM [facility] REPOSITORY Order Comment: RESULT(S) PREVIOUSLY REPORTED ON MANUAL REQUISITION DURING DOWNTIME. TYPE CODE TESTS RESULT OUT OF RANGE REFERENCE UNITS LAB L501.4900 200 mg/dL High CHOL 229 Result Comment: <200 mg/dL Desirable 200-240 mg/dL Borderline >240 mg/dL High Risk LAB L501.5000 mg/dL Normal TRIG 73 Result Comment: The drugs N-Acetylcysteine and Metamizole may falsely depress this assay. Serum Triglycerides Reference Interval Normal <150 mg/dL Borderline high 150 - 199 mg/dL High 200 - 499 mg/dL Very High > or = 500 mg/dL LAB L501.6400 mg/dL Normal HDL 88 Result Comment: The drugs N-Acetylcysteine and Metamizole may falsely depress this assay. Reference Range HDL <40 mg/dL Low HDL Cholesterol HDL >or= 60 mg/dL High HDL Cholesterol LAB L501.6500 0-130 mg/dL Normal LDL 126 LAB L501.6600 5-40 mg/dL Normal VLDL 15 Performed By: #### L500.2500, L500.4100, L501.9520 #### [facility] [address] [place], [address] THYROID STIM HORMONE Collected: 10/22/2017 Status: F Source: [place] (TSH) 5:25 AM [facility] REPOSITORY Order Comment: RESULT(S) PREVIOUSLY REPORTED ON MANUAL REQUISITION DURING DOWNTIME. TYPE CODE TESTS RESULT OUT OF RANGE REFERENCE UNITS LAB L501.9520 0.358-3.74 uIU/mL Normal TSH 1.00 Performed By: #### L500.2500, L500.4100, L501.9520 #### [facility] [address] [facility] [place], [place], [id number] CBC-COMPLETE BLOOD CNT Collected: 10/22/2017 Status: F Source: [place] NO DIFF 5:25 AM [facility] REPOSITORY Order Comment: RESULT(S) PREVIOUSLY REPORTED ON MANUAL REQUISITION DURING DOWNTIME. TYPE CODE TESTS RESULT OUT OF RANGE REFERENCE UNITS LAB L100.1000 4.4-11.0 K/mm3 High WBC 14.2 LAB L100.1200 4.2-5.4 M/mm3 Normal RBC 4.33 LAB L100.1300 12.0-15.0 g/dl Low HGB 11.8 LAB L100.1400 37-47 % Normal HCT 38.4 LAB L100.1500 81-99 fL Normal MCV 88.7 LAB L100.1600 27.0-32.0 pg Normal MCH 27.3 LAB L100.1700 32-36 g/gl Low MCHC 30.7 LAB L100.1810 11.6-14.6 % High RDW CV 17.8 LAB L100.1820 35.1-43.9 fl High RDW SD 57.9 LAB L100.1900 150-450 K/mm3 Normal PLT 288 LAB L100.2000 6.2-12.0 fl Normal MPV 10.8 Performed By: #### L100.0500, L101.9900 #### [facility] [address] [place], [address] ERYTHROCYTE SED RATE Collected: 10/22/2017 Status: F Source: [place] 5:25 AM [facility] REPOS[facility] Order Comment: RESULT(S) PREVIOUSLY REPORTED ON MANUAL REQUISITION DURING DOWNTIME. TYPE CODE TESTS RESULT OUT OF RANGE REFERENCE UNITS LAB L102.0000 0-30 mm/hr High SED RATE 54 Performed By: #### L100.0500, L101.9900 #### [facility] [address] [place], [address] PROTHROMBIN TIME W/INR Collected: 10/22/2017 Status: F Source: [place] 5:25 AM [facility] REPOSITORY Order Comment: RESULT(S) PREVIOUSLY REPORTED ON MANUAL REQUISITION DURING DOWNTIME. TYPE CODE TESTS RESULT OUT OF RANGE REFERENCE UNITS LAB L300.4150 11.7-14.9 SECONDS High PROTIME 24.2 LAB L300.4200 Normal INR 2.2 Performed By: #### L300.3900 #### [facility] [address] [place], [address] PROTHROMBIN TIME W/INR Collected: 10/12/2017 Status: F Source: [place] 7:10 AM [facility] REPOSITORY Order Comment: 46 TYPE CODE TESTS RESULT OUT OF RANGE REFERENCE UNITS LAB L300.4150 11.7-14.9 SECONDS High PROTIME 32.4 LAB L300.4200 Normal INR 3.1 Performed By: #### L300.3900 #### [facility] [address] [place], [address] PROTHROMBIN TIME W/INR Collected: 09/27/2017 Status: F Source: [place] 6:20 AM [facility] REPOSITORY Order Comment: 46 TYPE CODE TESTS RESULT OUT OF RANGE REFERENCE UNITS LAB L300.4150 11.7-14.9 SECONDS High PROTIME 32.4 LAB L300.4200 Normal INR 3.1 Performed By: #### L300.3900 #### [facility] [address] [place], [address] ERYTHROCYTE SED RATE Collected: 09/27/2017 Status: F Source: [place] 6:20 AM [facility] REPOSITORY Order Comment: 46 TYPE CODE TESTS RESULT OUT OF RANGE REFERENCE UNITS LAB L102.0000 0-30 mm/hr Normal SED RATE 20 Performed By: #### L101.9900 #### [facility] [address] [place], [address] BASIC METABOLIC Collected: 08/19/2017 Status: F Source: [place] PROFILE (BMP) 6:05 AM [facility] REPOS[facility] Order Comment: 46 TYPE CODE TESTS RESULT OUT OF RANGE REFERENCE UNITS LAB L501.0100 74-106 mg/dL Normal GLU 76 Result Comment: Please note revised GLUCOSE reference range effective 2017. LAB L501.1000 7-18 mg/dL High BUN 39 LAB L501.1100 0.55-1.02 mg/dL High CREAT,SERUM 2.12 Result Comment: The validity of the calculated GFR AND GFRAA in patients over 70 years has not been determined. Clinical correlation is essential. LAB L501.1110 >60 mL/min Low EST GFR 24 Result Comment: Non- GFR Calc LAB L501.1115 >60 mL/min Low EST GFR - AA 29 Result Comment: GFR Calc LAB L501.1300 10-20 RATIO Normal BUN/CRE 18.4 LAB L501.2200 8.5-10.1 mg/dL Low CA 7.9 LAB L501.5300 136-145 mmol/L NA Normal 141 LAB L501.5600 3.5-5.1 mmol/L K Normal 3.8 LAB L501.5900 98-107 mmol/L CL Normal 101 LAB L501.6100 21.0-32.0 mmol/L High CO2 33.0 LAB L501.6200 5-15 Normal GAP 7 Performed By: #### L500.2500 #### [facility] [address] [place], [address] CBC-COMPLETE BLOOD CNT Collected: 08/19/2017 Status: F Source: [place] NO DIFF 6:05 AM [facility] REPOS[facility] Order Comment: 46 TYPE CODE TESTS RESULT OUT OF RANGE REFERENCE UNITS LAB L100.1000 4.4-11.0 K/mm3 High WBC 13.4 LAB L100.1200 4.2-5.4 M/mm3 Low RBC 3.89 LAB L100.1300 12.0-15.0 g/dl Low HGB 10.6 LAB L100.1400 37-47 % Low HCT 34.8 LAB L100.1500 81-99 fL Normal MCV 89.5 LAB L100.1600 27.0-32.0 pg Normal MCH 27.2 LAB L100.1700 32-36 g/gl Low MCHC 30.5 LAB L100.1810 11.6-14.6 % High RDW CV 17.0 LAB L100.1820 35.1-43.9 fl High RDW SD 55.7 LAB L100.1900 150-450 K/mm3 Normal PLT 271 LAB L100.2000 6.2-12.0 fl Normal MPV 10.7 Performed By: #### L100.0500, L101.9900 #### [facility] [address] [place], [place], [id number] ERYTHROCYTE SED RATE Collected: 08/19/2017 Status: F Source: LILI 6:05 AM [facility] Order Comment: 46 TYPE CODE TESTS RESULT OUT OF RANGE REFERENCE UNITS LAB L102.0000 0-30 mm/hr High SED RATE 42 Performed By: #### L100.0500, L101.9900 #### [facility] [address] [place], [place], [id number] PROTHROMBIN TIME W/INR Collected: 08/19/2017 Status: F Source: [place] 6:05 AM [facility] Order Comment: 46 TYPE CODE TESTS RESULT OUT OF RANGE REFERENCE UNITS LAB L300.4150 11.7-14.9 SECONDS High PROTIME 28.1 LAB L300.4200 Normal INR 2.6 Performed By: #### L300.3900 #### [facility] [address] [place], [place], [address] CBC-COMPLETE BLOOD CNT Collected: 07/15/2017 Status: F Source: [place] NO DIFF 6:15 AM [facility] Order Comment: 46 TYPE CODE TESTS RESULT OUT OF RANGE REFERENCE UNITS LAB L100.1000 4.4-11.0 K/mm3 High WBC 14.4 LAB L100.1200 4.2-5.4 M/mm3 Low RBC 4.14 LAB L100.1300 12.0-15.0 g/dl Low HGB 11.5 LAB L100.1400 37-47 % Normal HCT 37.3 LAB L100.1500 81-99 fL Normal MCV 90.1 LAB L100.1600 27.0-32.0 pg Normal MCH 27.8 LAB L100.1700 32-36 g/gl Low MCHC 30.8 LAB L100.1810 11.6-14.6 % High RDW CV 17.5 LAB L100.1820 35.1-43.9 fl High RDW SD 58.1 LAB L100.1900 150-450 K/mm3 Normal PLT 300 LAB L100.2000 6.2-12.0 fl Normal MPV 11.0 Performed By: #### L100.0500, L101.9900 #### [facility] [address] [place], [place], [address] ERYTHROCYTE SED RATE Collected: 07/15/2017 Status: F Source: [place] 6:15 AM [facility] Order Comment: 46 TYPE CODE TESTS RESULT OUT OF RANGE REFERENCE UNITS LAB L102.0000 0-30 mm/hr Normal SED RATE 21 Performed By: #### L100.0500, L101.9900 #### [facility] [address] [facility] [place], [place], [address] BASIC METABOLIC Collected: 07/15/2017 Status: F Source: [place] PROFILE (BMP) 6:15 AM [facility] Order Comment: 46 TYPE CODE TESTS RESULT OUT OF RANGE REFERENCE UNITS LAB L501.0100 74-106 mg/dL Low GLU 72 Result Comment: Please note revised GLUCOSE reference range effective 2017. LAB L501.1000 7-18 mg/dL High BUN 40 LAB L501.1100 0.55-1.02 mg/dL High CREAT,SERUM 2.16 Result Comment: The validity of the calculated GFR AND GFRAA in patients over 70 years has not been determined. Clinical correlation is essential. LAB L501.1110 >60 mL/min Low EST GFR 24 Result Comment: Non- GFR Calc LAB L501.1115 >60 mL/min Low EST GFR - AA 29 Result Comment: GFR Calc LAB L501.1300 10-20 RATIO Normal BUN/CRE 18.5 LAB L501.2200 8.5-10.1 mg/dL Low CA 7.8 LAB L501.5300 136-145 mmol/L NA Normal 139 LAB L501.5600 3.5-5.1 mmol/L K Normal 4.1 LAB L501.5900 98-107 mmol/L CL Normal 99 LAB L501.6100 21.0-32.0 mmol/L Normal CO2 30.0 LAB L501.6200 5-15 Normal GAP 10 Performed By: #### L500.2500 #### [facility] [address] [place], [place], [id number] PROTHROMBIN TIME W/INR Collected: 07/15/2017 Status: F Source: LILI 6:15 AM [facility] Order Comment: 46 TYPE CODE TESTS RESULT OUT OF RANGE REFERENCE UNITS LAB L300.4150 11.7-14.9 SECONDS High PROTIME 30.7 LAB L300.4200 Normal INR 2.9 Performed By: #### L300.3900 #### [facility] [address] [place], [place], [address] PROTHROMBIN TIME W/INR Collected: 07/01/2017 Status: F Source: LILI 6:44 AM [facility]POS[facility] Order Comment: ROOM 46 TYPE CODE TESTS RESULT OUT OF RANGE REFERENCE UNITS LAB L300.4150 11.7-14.9 SECONDS High PROTIME 25.5 LAB L300.4200 Normal INR 2.4 Performed By: #### L300.3900 #### [facility] [place], [place], [address] CBC-COMPLETE BLOOD CNT Collected: 06/17/2017 Status: F Source: [place] NO DIFF 6:18 AM [facility] Order Comment: 46 TYPE CODE TESTS RESULT OUT OF RANGE REFERENCE UNITS LAB L100.1000 4.4-11.0 K/mm3 High WBC 12.0 LAB L100.1200 4.2-5.4 M/mm3 Low RBC 3.69 LAB L100.1300 12.0-15.0 g/dl Low HGB 10.4 LAB L100.1400 37-47 % Low HCT 33.3 LAB L100.1500 81-99 fL Normal MCV 90.2 LAB L100.1600 27.0-32.0 pg Normal MCH 28.2 LAB L100.1700 32-36 g/gl Low MCHC 31.2 LAB L100.1810 11.6-14.6 % High RDW CV 18.2 LAB L100.1820 35.1-43.9 fl High RDW SD 58.4 LAB L100.1900 150-450 K/mm3 Normal PLT 255 LAB L100.2000 6.2-12.0 fl Normal MPV 11.1 Performed By: #### L100.0500, L101.9900 #### [facility] [address] [place], [place], [address] ERYTHROCYTE SED RATE Collected: 06/17/2017 Status: F Source: [place] 6:18 AM [facility] Order Comment: 46 TYPE CODE TESTS RESULT OUT OF RANGE REFERENCE UNITS LAB L102.0000 0-30 mm/hr High SED RATE 42 Performed By: #### L100.0500, L101.9900 #### [facility] [address] [place], [place], [address] BASIC METABOLIC Collected: 06/17/2017 Status: F Source: [place] PROFILE (BMP) 6:18 AM [facility] Order Comment: 46 TYPE CODE TESTS RESULT OUT OF RANGE REFERENCE UNITS LAB L501.0100 70-110 mg/dL Normal GLU 76 LAB L501.1000 7-18 mg/dL High BUN 37 LAB L501.1100 0.55-1.02 mg/dL High 2.10 CREAT,SERUM Result Comment: The validity of the calculated GFR AND GFRAA in patients over 70 years has not been determined. Clinical correlation is essential. LAB L501.1110 >60 mL/min Low EST GFR 25 Result Comment: Non- GFR Calc LAB L501.1115 >60 mL/min Low EST GFR - AA 30 Result Comment: GFR Calc LAB L501.1300 10-20 RATIO Normal BUN/CRE 17.6 LAB L501.2200 8.5-10.1 mg/dL Low CA 8.1 LAB L501.5300 136-145 mmol/L NA Normal 139 LAB L501.5600 3.5-5.1 mmol/L K Normal 4.1 LAB L501.5900 98-107 mmol/L CL Normal 100 LAB L501.6100 21.0-32.0 mmol/L Normal CO2 31.0 LAB L501.6200 5-15 Normal GAP 8 Performed By: #### L500.2500, L501.4405 #### [facility] [address] [place], [place], [address] ALANINE AMINOTRANSFERAS Collected: 06/17/2017 Status: F Source: RUTLEDGE (SGPT) 6:18 AM [facility] Order Comment: 46 TYPE CODE TESTS RESULT OUT OF RANGE REFERENCE UNITS LAB L501.4405 13-56 U/L Normal ALT 17 Result Comment: Please note revised ALT reference range effective 2017. Performed By: #### L500.2500, L501.4405 #### [facility] [address] [place], [place], [address] PROTHROMBIN TIME W/INR Collected: 06/17/2017 Status: F Source: R[place]LEDGE 6:18 AM [facility] Order Comment: 46 TYPE CODE TESTS RESULT OUT OF RANGE REFERENCE UNITS LAB L300.4150 11.7-14.9 SECONDS High PROTIME 31.0 LAB L300.4200 Normal INR 3.1 Performed By: #### L300.3900 #### [facility] [address] [place], [address] PROGRESS Observed: 06/04/2017 Status: COMPLETED Source: [place] 1:40 PM [facility]INIC OTHER CAMPUS REPOSITORY HNO ID: [id number] Author: Tiana Somers Service: (none) Author Type: Physician Type: Progress Notes Filed: 06/04/2017 4:58 PM Note Text: PERTINENT CARDIAC HISTORY Atrial fib - paroxysmal CVA - embolic HL HTN Temporal arteritis - 2016 Venous insufficiency ADHERENCE TO GUIDELINES GE-I or ARB for HF with prior LVEF<40 (NQF 0081) - N/A ASA or Plavix for ASHD (NQ 0067) - N/A Beta lili for ASHD with prior IL or prior LVEF<40 (NQF 0070) - N/A Beta lili for HF with prior LVEF<40 (NQF 0083) - N/A GE-I or ARB for ASHD with DM or prior LVEF<40 (NQF 0066) - N/A Statin therapy for ASHD or FHL or DM - met BMI documented and plan if >25 (NQ 0421) - lifestyle recommendation form Tobacco use screening and referral (NQ 0028) - lifestyle recommendation form Recommendation for whole food, plant based diet - lifestyle recommendation form CLINICAL IMPRESSION/PLAN: Kumar García is doing reasonably well. Her atrial fibrillation is controlled. She will undergo ALT for followup of her drug therapy. I've encouraged her to continue her current medication. She reports that she is not distressed by the amount of edema. She has no weeping or ulcerations. I've asked her to keep her legs elevated and consider wearing support stockings. It seems that she is destined to continue steroid therapy. I will see her in 8 months or as needed. If there is increased chest pain or shortness of breath, she's been advised to contact me. Written and verbal health teaching given to patient, patient verbalizes understanding and agrees with treatment plan. This note was generated using [employer] voice recognition system, and there may be some incorrect words, spellings, and punctuation that were not noted in checking the note before saving. DIAGNOSIS FOR VISIT: PAF HISTORY OF PRESENT ILLNESS Kumar García returns for follow-up of her atrial fibrillation. She reports that she has had no recent palpitations. Her edema has been stable. She is still on prednisone. She denies chest pain, orthopnea, syncope, TIAs, amaurosis and claudication. ALLERGIES: ALLERGIES Allergen Reactions - Penicillins - Septra [Sulfamethox* CURRENT OUTPATIENT MEDICATIONS: omeprazole (PRILOSEC) 20 mg capsule Take 20 mg by mouth once daily. alendronate (FOSAMAX) 35 mg tablet Take 35 mg by mouth once each week. traMADol (ULTRAM) 50 mg tablet Take 50 mg by mouth every 6 hours as needed. simethicone, chewable (MYLICON) 80 mg chewable tablet Take 80 mg by mouth every 6 hours as needed. loperamide (IMODIUM) 2 mg cap(s) Take 2 mg by mouth four times daily as needed. furosemide (LASIX) 20 mg tablet Take 2 tablets by mouth twice daily. metFORMIN (GLUCOPHAGE) 500 mg tablet Take 500 mg by mouth daily with dinner. enalapril (VASOTEC) 5 mg tablet Take 1 tablet by mouth once daily. metoprolol tartrate, short acting, (LOPRESSOR) 50 mg tablet Take 0.5 tablets by mouth twice daily. ammonium lactate (LAC-HYDRIN) 12 % cream Apply to affected area as needed. sertraline (ZOLOFT) 100 mg tablet Take 100 mg by mouth once daily. predniSONE (DELTASONE) 20 mg tablet Take 20 mg by mouth twice daily. IRON POLYSACCHARIDE COMPLEX (FERREX 150 ORAL) Take by mouth. buPROPion SR (ZYBAN SR; WELLBUTRIN SR) 150 mg 12 hr tablet Take 150 mg by mouth once daily. warfarin (COUMADIN) 1 mg tablet Take as directed warfarin (COUMADIN) 4 mg tablet HOLD warfarin (COUMADIN) 3 mg tablet HOLD ACETAMINOPHEN (TYLENOL ORAL) Take 500 mg by mouth every 6 hours as needed. One to 2 tablets levothyroxine (SYNTHROID) 88 mcg tablet Take 1 tablet by mouth daily before breakfast. pravastatin (PRAVACHOL) 20 mg tablet Take 1 tablet by mouth daily at bedtime. amiodarone (CORDARONE) 200 mg tablet Take 0.5 tablets by mouth once daily. Cholecalciferol, Vitamin D3, 2,000 unit tab Take 2,000 Units by mouth once daily. senna (SENOKOT) 8.6 mg tab Take 8.6 mg by mouth twice daily as needed. INSULIN DETEMIR (LEVEMIR SUBCUTANEOUS) Inject 100 Units subcutaneously every evening. CALCIUM CARBONATE/VITAMIN D3 (VITAMIN D-3 ORAL) Take 1,000 Units by mouth once daily. insulin aspart (NOVOLOG) 100 unit/mL soln Inject subcutaneously once daily. Sliding scale citalopram (CELEXA) 20 mg tablet Take 1/2 a tab by mouth daily for 10 days then one a day. hydrochlorothiazide (HYDRODIURIL, ESIDRIX) 25 mg tablet Take 1 tablet by mouth once daily. Calcium Citrate-Vitamin D3 630-400 mg-unit Take 1 tablet by mouth once daily. Ferrous Sulfate (IRON) 27 mg iron tab Take 1 tablet by mouth once daily. PHYSICAL EXAMINATION: VITAL SIGNS: BP 122/82 Pulse 70 Ht 5' 6 (1.68m) Wt 235 lb 8 oz (106.8kg) BMI 38.03 kg/(m2). Chest: Clear to percussion and auscultation. Trachea is midline. Air entry is equal. Cardiac: Regular rhythm. S1 and S2 are normal. PMI is nondisplaced. There is a soft systolic ejection murmur. Carotids are brisk without bruits. JVP is less than 10 cm. Abdomen: Soft and nontender. There are no pulsatile masses or bruits. No liver enlargement. Bowel sounds are active. Extremities: 2 plus pitting edema. Pulses are intact and symmetrical. Recent labs were reviewed. Renal function is moderately impaired, but stable. INR is therapeutic. TSH is normal. LDL was 82. 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 HL HTN Temporal arteritis - 2016 Venous insufficiency ADHERENCE TO GUIDELINES GE-I or ARB for HF with prior LVEFANDlt;40 (NQF 0081) - N/A ASA or Plavix for ASHD (NQF 0067) - N/A Beta lili for ASHD with prior IL or prior LVEFANDlt;40 (NQF 0070) - N/A Beta lili for HF with prior LVEFANDlt;40 ([facility] 0083) - N/A GE-I or ARB for ASHD with DM or prior LVEFANDlt;40 ([facility] 0066) - N/A Statin therapy for ASHD or FHL or DM - met BMI documented and plan if ANDgt;25 ([facility] 0421) - lifestyle recommendation form Tobacco use screening and referral ([facility] 0028) - lifestyle recommendation form Recommendation for whole food, plant based diet - lifestyle recommendation form CLINICAL IMPRESSION/PLAN: Kumar García is doing reasonably well. Her atrial fibrillation is controlled. She will undergo ALT for followup of her drug therapy. I've encouraged her to continue her current medication. She reports that she is not distressed by the amount of edema. She has no weeping or ulcerations. I've asked her to keep her legs elevated and consider wearing support stockings. It seems that she is destined to continue steroid therapy. I will see her in 8 months or as needed. If there is increased chest pain or shortness of breath, she's been advised to contact me. Written and verbal health teaching given to patient, patient verbalizes understanding and agrees with treatment plan. This note was generated using [employer] voice recognition system, and there may be some incorrect words, spellings, and punctuation that were not noted in checking the note before saving. DIAGNOSIS FOR VISIT: PAF HISTORY OF PRESENT ILLNESS Kumar García returns for follow-up of her atrial fibrillation. She reports that she has had no recent palpitations. Her edema has been stable. She is still on prednisone. She denies chest pain, orthopnea, syncope, TIAs, amaurosis and claudication. ALLERGIES: ALLERGIES Allergen Reactions - Penicillins - Septra [Sulfamethox* CURRENT OUTPATIENT MEDICATIONS: omeprazole (PRILOSEC) 20 mg capsule Take 20 mg by mouth once daily. alendronate (FOSAMAX) 35 mg tablet Take 35 mg by mouth once each week. traMADol (ULTRAM) 50 mg tablet Take 50 mg by mouth every 6 hours as needed. simethicone, chewable (MYLICON) 80 mg chewable tablet Take 80 mg by mouth every 6 hours as needed. loperamide (IMODIUM) 2 mg cap(s) Take 2 mg by mouth four times daily as needed. furosemide (LASIX) 20 mg tablet Take 2 tablets by mouth twice daily. metFORMIN (GLUCOPHAGE) 500 mg tablet Take 500 mg by mouth daily with dinner. enalapril (VASOTEC) 5 mg tablet Take 1 tablet by mouth once daily. metoprolol tartrate, short acting, (LOPRESSOR) 50 mg tablet Take 0.5 tablets by mouth twice daily. ammonium lactate (LAC-HYDRIN) 12 % cream Apply to affected area as needed. sertraline (ZOLOFT) 100 mg tablet Take 100 mg by mouth once daily. predniSONE (DELTASONE) 20 mg tablet Take 20 mg by mouth twice daily. IRON POLYSACCHARIDE COMPLEX (FERREX 150 ORAL) Take by mouth. buPROPion SR (ZYBAN SR; WELLBUTRIN SR) 150 mg 12 hr tablet Take 150 mg by mouth once daily. warfarin (COUMADIN) 1 mg tablet Take as directed warfarin (COUMADIN) 4 mg tablet HOLD warfarin (COUMADIN) 3 mg tablet HOLD ACETAMINOPHEN (TYLENOL ORAL) Take 500 mg by mouth every 6 hours as needed. One to 2 tablets levothyroxine (SYNTHROID) 88 mcg tablet Take 1 tablet by mouth daily before breakfast. pravastatin (PRAVACHOL) 20 mg tablet Take 1 tablet by mouth daily at bedtime. amiodarone (CORDARONE) 200 mg tablet Take 0.5 tablets by mouth once daily. Cholecalciferol, Vitamin D3, 2,000 unit tab Take 2,000 Units by mouth once daily. senna (SENOKOT) 8.6 mg tab Take 8.6 mg by mouth twice daily as needed. INSULIN DETEMIR (LEVEMIR SUBCUTANEOUS) Inject 100 Units subcutaneously every evening. CALCIUM CARBONATE/VITAMIN D3 (VITAMIN D-3 ORAL) Take 1,000 Units by mouth once daily. insulin aspart (NOVOLOG) 100 unit/mL soln Inject subcutaneously once daily. Sliding scale citalopram (CELEXA) 20 mg tablet Take 1/2 a tab by mouth daily for 10 days then one a day. hydrochlorothiazide (HYDRODIURIL, ESIDRIX) 25 mg tablet Take 1 tablet by mouth once daily. Calcium Citrate-Vitamin D3 630-400 mg-unit Take 1 tablet by mouth once daily. Ferrous Sulfate (IRON) 27 mg iron tab Take 1 tablet by mouth once daily. PHYSICAL EXAMINATION: VITAL SIGNS: BP 122/82 Pulse 70 Ht 5' 6ANDquot; (1.68m) Wt 235 lb 8 oz (106.8kg) BMI 38.03 kg/(m2). Chest: Clear to percussion and auscultation. Trachea is midline. Air entry is equal. Cardiac: Regular rhythm. S1 and S2 are normal. PMI is nondisplaced. There is a soft systolic ejection murmur. Carotids are brisk without bruits. JVP is less than 10 cm. Abdomen: Soft and nontender. There are no pulsatile masses or bruits. No liver enlargement. Bowel sounds are active. Extremities: 2 plus pitting edema. Pulses are intact and symmetrical. Recent labs were reviewed. Renal function is moderately impaired, but stable. INR is therapeutic. TSH is normal. LDL was 82. Electronically Signed: Tiana Somers MD June 04, 2017 1:40 PM CC: MD Tiana Feliz MD 06/04/2017 1:40 PM Signed LIFESTYLE CHANGE A healthy lifestyle is the most important component of your overall treatment plan. Please give serious thought to the following areas and commit to making fdc changes. EAT A WHOLE FOOD, PLANT BASED DIET The nutrition your body gets is more important than the medicine you take. What matters most is the overall way you eat. We encourage you to minimize the use of animal products (which include dairy and all meats except fatty fish) and use whole, unprocessed plant foods to provide your protein, vitamins and other nutrients. We have a lot of information to share with you on this topic. We also hold Shared Medical Appointments, where you can come visit with Dr. Somers in the company of other patients and spend over an hour talking about the challenges of changing the way you eat. This is not a ANDquot;dietANDquot;. It is a way of life that you will keep with you. EXERCISE REGULARLY It is not important to spend hours in the gym, lifting weights and perspiring heavily. A total of 2-3 hours per week of aerobic (causing you to be moderately short of breath) exercise is sufficient to improve your health. Talk to us before you begin a new exercise program, if you have heart disease or experience shortness of breath or chest pain. REDUCE STRESS Chronic emotional and physical stress leads to disease. Ways of reducing stress include meditation, visualization, prayer, yoga and other forms of relaxation therapy. Consistency is the chaparro. Find a technique that works for you and do it every day. CULTIVATE RELATIONSHIPS Loneliness and isolation have a major negative impact on health. Seek out others who can love, care for and nurture you. Avoid hurtful relationships. MAINTAIN IDEAL BODY WEIGHT The best way to do this is to do all the things above. Our bodies naturally find the right weight if we keep moving and feed ourselves the right food. If your BMI is greater than 25, we strongly recommend a referral to a weight management program. Please speak to us or your family physician about available programs. AVOID NICOTINE IN ALL FORMS This includes all tobacco products, whether chewed, smoked, vaped, or rubbed on the skin. Smoking cessation programs, which can make use of tobacco substitutes, medications to suppress cravings and behavior management, are available. Please contact your family physician about programs in your area. Misbah Bell, RN, RN 06/07/2017 8:45 AM Signed Copy of OV note mailed to [employer]. Misbah Bell RN, RN 06/07/2017 11:44 AM Signed Also faxed copy of note to [facility] @ [phone] Referring Provider: TIANA SOMERS [[id number]] Allergies As of Date: 06/04/2017 Noted Allergy Reaction PENICILLINS 05/27/2005 SEPTRA (SULFAMETHOXAZOLE-TRIMETHO*05/27/2005 Date Reviewed: 06/04/2017 Reviewed by: Chelsie Grace - Fully Assessed Reason for Visit: Follow Up [171] Primary Visit Diagnosis:PAF (paroxysmal atrial fibrillation) ([facility]) [I48.0] Prescriptions as of 06/04/2017 Sig: OMEPRAZOLE 20 MG CAPSULE,MARLENE* Take 20 mg by mouth once rhonda* ALENDRONATE 35 MG TABLET Take 35 mg by mouth once each* TRAMADOL 50 MG TABLET Take 50 mg by mouth every 6 h* SIMETHICONE 80 MG CHEWABLE TA* Take 80 mg by mouth every 6 h* LOPERAMIDE 2 MG CAPSULE Take 2 mg by mouth four times* FUROSEMIDE 20 MG TABLET Take 2 tablets by mouth twice* METFORMIN 500 MG TABLET Take 500 mg by mouth daily wi* ENALAPRIL MALEATE 5 MG TABLET Take 1 tablet by mouth once d* METOPROLOL TARTRATE 50 MG TAB* Take 0.5 tablets by mouth twi* AMMONIUM LACTATE 12 % TOPICAL* Apply to affected area as ne* SERTRALINE 100 MG TABLET Take 100 mg by mouth once ayala* PREDNISONE 20 MG TABLET Take 20 mg by mouth twice ayala* FERREX 150 ORAL Take by mouth. BUPROPION HCL SR 150 MG TABLE* Take 150 mg by mouth once ayala* WARFARIN 1 MG TABLET Take as directed WARFARIN 4 MG TABLET HOLD WARFARIN 3 MG TABLET HOLD TYLENOL ORAL Take 500 mg by mouth every 6 * LEVOTHYROXINE 88 MCG TABLET Take 1 tablet by mouth daily * PRAVASTATIN 20 MG TABLET Take 1 tablet by mouth daily * AMIODARONE 200 MG TABLET Take 0.5 tablets by mouth onc* CHOLECALCIFEROL (VITAMIN D3) * Take 2,000 Units by mouth onc* SENNOSIDES 8.6 MG TABLET Take 8.6 mg by mouth twice da* LEVEMIR SUBCUTANEOUS Inject 100 Units subcutaneous* VITAMIN D-3 ORAL Take 1,000 Units by mouth onc* INSULIN ASPART 100 UNIT/ML POWELL* Inject subcutaneously once d* CITALOPRAM 20 MG TABLET Take 1/2 a tab by mouth daily* HYDROCHLOROTHIAZIDE 25 MG TAB* Take 1 tablet by mouth once d* CALCIUM CITRATE-VITAMIN D 630* Take 1 tablet by mouth once d* FERROUS SULFATE 27 MG IRON TA* Take 1 tablet by mouth once d* Patient taking differently: Take 1 tablet by mouth once d* Medication notes this encounter FERROUS SULFATE 27 MG IRON TABLET >> Chelsie Grace MA 06/04/2017 1:14 PM >> CHELSIE GRACE MA WedJun 04, 2017 1:14 PM >> Chelsie Grace MA 06/04/2017 1:18 PM >> CHELSIE GRACE MA WedJun 04, 2017 1:18 PM Not taking More... Problem List As Of Date 06/04/2017 Noted Resolved Calculus of gallbladder without mention of chol* 02/19/2012 More... Benign Neoplasm of Colon [D12.6] INVALID FOR* Priority: C More... More... Encounter for routine gynecological examination*INVALID FOR* Priority: D Class: Chronic More... Essential hypertension, benign [I10] INVALID FOR* Priority: A More... Obesity [E66.9] Priority: B Mixed stress and urge urinary incontinence [N39* Priority: C Cerebral infarction (HCC) [I63.9] INVALID FOR* Priority: A More... Atrial fibrillation [I48.91] INVALID FOR* Priority: A More... Hypothyroidism (acquired) [E03.9] INVALID FOR* Priority: A Hyperlipidemia [E78.5] INVALID FOR* Priority: A Rash of unknown cause [R21] INVALID FOR* Iron deficiency anemia [D50.9] INVALID FOR* Priority: A More... Temporal arteritis (HCC) [M31.6] INVALID FOR* Priority: A Bilateral leg edema [R60.0] INVALID FOR* Depression [F32.9] INVALID FOR* Other instructions from your clinician: LIFESTYLE CHANGE A healthy lifestyle is the most important component of your overall treatment plan. Please give serious thought to the following areas and commit to making fdc changes. EAT A WHOLE FOOD, PLANT BASED DIET The nutrition your body gets is more important than the medicine you take. What matters most is the overall way you eat. We encourage you to minimize the use of animal products (which include dairy and all meats except fatty fish) and use whole, unprocessed plant foods to provide your protein, vitamins and other nutrients. We have a lot of information to share with you on this topic. We also hold Shared Medical Appointments, where you can come visit with Dr. Somers in the company of other patients and spend over an hour talking about the challenges of changing the way you eat. This is not a diet. It is a way of life that you will keep with you. EXERCISE REGULARLY It is not important to spend hours in the gym, lifting weights and perspiring heavily. A total of 2-3 hours per week of aerobic (causing you to be moderately short of breath) exercise is sufficient to improve your health. Talk to us before you begin a new exercise program, if you have heart disease or experience shortness of breath or chest pain. REDUCE STRESS Chronic emotional and physical stress leads to disease. Ways of reducing stress include meditation, visualization, prayer, yoga and other forms of relaxation therapy. Consistency is the chaparro. Find a technique that works for you and do it every day. CULTIVATE RELATIONSHIPS Loneliness and isolation have a major negative impact on health. Seek out others who can love, care for and nurture you. Avoid hurtful relationships. MAINTAIN IDEAL BODY WEIGHT The best way to do this is to do all the things above. Our bodies naturally find the right weight if we keep moving and feed ourselves the right food. If your BMI is greater than 25, we strongly recommend a referral to a weight management program. Please speak to us or your family physician about available programs. AVOID NICOTINE IN ALL FORMS This includes all tobacco products, whether chewed, smoked, vaped, or rubbed on the skin. Smoking cessation programs, which can make use of tobacco substitutes, medications to suppress cravings and behavior management, are available. Please contact your family physician about programs in your area. Visit Notes: >> Misbah Pack) FAVIOLA Bell WedJun 07, 2017 8:45 AM Status: Signed Copy of OV note mailed to [facility]. >> Misbah Pack) FAVIOLA Blel WedJun 07, 2017 11:43 AM Status: Signed Also faxed copy of note to [employer] @ [phone] Follow-up and Disposition History Recorded Encounter Status:Closed by TIANA SOMERS MD on 06/04/17 CBC-COMPLETE BLOOD CNT Collected: 05/18/2017 Status: F Source: LILI NO DIFF 8:00 AM [facility] REPOSITORY Order Comment: 46 TYPE CODE TESTS RESULT OUT OF RANGE REFERENCE UNITS LAB L100.1000 4.4-11.0 K/mm3 High WBC 13.6 LAB L100.1200 4.2-5.4 M/mm3 Low RBC 4.10 LAB L100.1300 12.0-15.0 g/dl Low HGB 11.1 LAB L100.1400 37-47 % Normal HCT 37.0 LAB L100.1500 81-99 fL Normal MCV 90.2 LAB L100.1600 27.0-32.0 pg Normal MCH 27.1 LAB L100.1700 32-36 g/gl Low MCHC 30.0 LAB L100.1810 11.6-14.6 % High RDW CV 18.4 LAB L100.1820 35.1-43.9 fl High RDW SD 60.9 LAB L100.1900 150-450 K/mm3 Normal PLT 274 LAB L100.2000 6.2-12.0 fl Normal MPV 10.6 Performed By: #### L100.0500, L101.9900 #### [facility] [address] [place], [address] ERYTHROCYTE SED RATE Collected: 05/18/2017 Status: F Source: LILI 8:00 AM [facility] REPOSITORY Order Comment: 46 TYPE CODE TESTS RESULT OUT OF RANGE REFERENCE UNITS LAB L102.0000 0-30 mm/hr High SED RATE 38 Performed By: #### L100.0500, L101.9900 #### [facility] [address] [place], [place], [address] BASIC METABOLIC Collected: 05/18/2017 Status: F Source: LILI PROFILE (BMP) 8:00 AM [facility] REPOSITORY Order Comment: 46 TYPE CODE TESTS RESULT OUT OF RANGE REFERENCE UNITS LAB L501.0100 70-110 mg/dL Normal GLU 71 LAB L501.1000 7-18 mg/dL High BUN 38 LAB L501.1100 0.55-1.02 mg/dL High 2.12 CREAT,SERUM Result Comment: The validity of the calculated GFR AND GFRAA in patients over 70 years has not been determined. Clinical correlation is essential. LAB L501.1110 >60 mL/min Low EST GFR 24 Result Comment: Non- GFR Calc LAB L501.1115 >60 mL/min Low EST GFR - AA 29 Result Comment: GFR Calc LAB L501.1300 10-20 RATIO Normal BUN/CRE 17.9 LAB L501.2200 8.5-10.1 mg/dL Low CA 8.0 LAB L501.5300 136-145 mmol/L NA Normal 140 LAB L501.5600 3.5-5.1 mmol/L K Normal 4.1 LAB L501.5900 98-107 mmol/L CL Normal 102 LAB L501.6100 21.0-32.0 mmol/L Normal CO2 29.0 LAB L501.6200 5-15 Normal GAP 9 Performed By: #### L500.2500 #### [facility] [address] [place], [place], [address] PROTHROMBIN TIME W/INR Collected: 05/18/2017 Status: F Source: LILI 8:00 AM [facility] REPOSITORY Order Comment: 46 TYPE CODE TESTS RESULT OUT OF RANGE REFERENCE UNITS LAB L300.4150 11.7-14.9 SECONDS High PROTIME 26.4 LAB L300.4200 Normal INR 2.5 Performed By: #### L300.3900 #### [facility] [address] [place], [address] ALLERGIES ALLERGIES DATE TYPE / CODE NAME / CODE REACTION SEVERITY SOURCE 07/07/2015 Drug Penicillins/[id number] Unknown Unknown [place]ili Allergy/416 0476(RXNORM) [facility] 591031([facility]) Repository 05/27/2005 Drug PENICILLINS [facility] Class/36450 Other [place] 1003[facility] 05/27/2005 DRUG/[id number] SULFAMETHOXAZOLE-T [facility] 003([facility] Other [place]) Repository NG/[id number] PENICILLINS [facility] 6([facility]) Repository NG/[id number] SULFAMETHOXAZOLE-T [facility] 6([facility]) Repository ENCOUNTERS ENCOUNTERS ADMIT/DISCHARGE ACCOUNT NUMBER ADMITTING ENCOUNTER LOCATION SOURCE CLASS 04/18/2018 [id number] [facility] ding:OLS.WHL Repository TSB 03/18/2018 [id number] [facility] ding:OLS.WHL Repository TSB 02/17/2018 [id number] [facility] ding:OLS.WHL Repository TSB 02/02/2018/02/04/20 [id number] Ambulatory [address] Repository 2018 [id number] Ambulatory [facility] MEDICAL Repository BLOOMINGBURGBuildi ng:CAGWS 01/18/2018 [id number] [facility] ding:OLS.WHL Repository TSB 12/20/2017 [id number] [facility] ding:OLS.WHL Repository TSB 11/19/2017 [id number] [facility] ding:OLS.WHL Repository TSB 11/02/2017 [id number] [facility] ding:OLS.WHL Repository TSB 10/22/2017 [id number] [facility] ding:OLS.WHL Repository TSB 10/12/2017 [id number] [facility] ding:OLS.WHL Repository TSB 09/27/2017 [id number] [facility] ding:OLS.WHL Repository TSB 08/19/2017 [id number] [facility] ding:OLS.WHL Repository TSB 07/15/2017 [id number] [facility] ding:OLS.WHL Repository TSB 07/01/2017 [id number] [facility] ding:OLS.WHL Repository TSB 06/17/2017 [id number] [facility] ding:OLS.WHL Repository TSB 06/04/2017/06/04/19 [id number] Ambulatory [address] [place] Repository 06/04/2017/06/04/19 [id number] Ambulatory [address] MEDICAL Repository [facility] ng:CAGWS 05/18/2017 [id number] [facility] ding:OLS.WHL Repository TSB PAYERS PAYERS ENCOUNTER GUARANTOR PAYER SUBSCRIBER SOURCE 04/18/2018 JEFFERY [id number] Primary Kuamr KOVACSDONNIE KHAN, Insurance:HUMANA WirtDOB: [facility] [address]Yyc: (330) [facility] [id number] [address] () Number: Repository [id number] Date:7721-45-74FM[address] [address]HP: 04/18/2018 Secondary Kumar Kaitlin Pearson Insurance:MEDICARE WirtDOB: [facility] Number: [id number] Hospital [id number] Repository Date:2018-04-18 04/18/2018 Tertiary NOT GIVENUNK Lili Insurance:SELF PAY [facility] Number: Effective Repository Date:2018-04-18 03/18/2018 JEFFERY [id number] Primary Kumar SMITH SHANNANLUIS MANUEL, Insurance:HUMANA WirtDOB: [facility] [address]Yfs: (330) [facility] [id number] [address] () Number: Repository [id number] Date:9853-00-10[address] [place] [address]XO: 03/18/2018 Secondary Kumar Pearson Insurance:MEDICARE WirtDOB: Community PART A BPolicy Number: [id number] Hospital [id number] Repository Date:2018-03-18 03/18/2018 Tertiary NOT GIVENUNK Lili Insurance:SELF PAY [facility] Number: Effective Repository Date:2018-03-18 02/17/2018 Kumar [id number] Primary Kumar Pearson [facility] Insurance:MEDICARE WirtDOB: [facility] HEALTHY PART A BPolicy Number: [id number] [id number] Repository [address]Ewc: 330) Date:2018-02-17 [facility]0525 () 02/17/2018 Secondary Kumar Pearson Insurance:HUMANA WirtDOB: [facility] [id number] Hospital Number: Repository [id number] Date:3695-11-11PF[address] [address]WB: 02/17/2018 Tertiary NOT GIVENUNK Lili Insurance:SELF PAY [facility] Number: Effective Repository Date:2018-02-17 2018 KUMAR WIRTDOB: Primary KUMAR WIRTDOB: [facility] Insurance:MEDICARE A [id number] [facility] AND BPolicy Number: Repository [place] [id number] [address]Tyf: (330) Date: [id number] () 2018 Secondary KUMAR WIRTDOB: [facility] Insurance:HUMANA [id number] MEDICARE Repository SUPPLEMENTPolicy Number: [id number] Date: 01/18/2018 JEFFERY [id number] Primary Kumar [place] [facility], Insurance:HUMANA WirtDOB: [place] [address]Qef: (330) COMMERCIALPolunitypoint health-[facility] [id number] () Number: Repository [id number] Date:2574-12-36[address] [place] [address]CD: 01/18/2018 Secondary Kumar Pearson Insurance:MEDICARE WirtDOB: Community PART A BPolicy Number: [id number] Hospital [id number] Repository Date:2018-01-18 01/18/2018 Tertiary NOT GIVENUNK [place] Insurance:SELF PAY [facility] Number: Effective Repository Date:2018-01-18 12/20/2017 JEFFERY [place] [id number] Primary Kumar KHAN, Insurance:MEDICARE WirtDOB: [place] [address]Npl: (330) PART A BPolicy Number: [id number] [place]ille [address] () [id number] Repository Date:2017-12-20 12/20/2017 Secondary Kumar Pearson Insurance:HUMANA WirtDOB: Community [facility]CIAL[facility] [id number] Hospital Number: Repository [id number] Date:0386-53-27LS [address] [place] [address]DB: 12/20/2017 Tertiary NOT GIVENUNK [place] Insurance:SELF PAY [facility] Hospital Number: Effective Repository Date:2017-12-20 11/19/2017 JEFFERY [place] [id number] Primary Kumar KHAN, Insurance:MEDICARE WirtDOB: [place] [address]Fan: (330) PART A BPolicy Number: [id number] [place] [address] () [id number] Repository Date:2017-11-19 11/19/2017 Secondary JEFFERY Pearson Insurance:HUMANA WIRTDOB: [facility] [id number] Hospital Number: Repository [id number] Date:3041-40-38[address] [place] [address]UV: 11/19/2017 Tertiary NOT GIVENUNK Lili Insurance:SELF PAY [facility] Hospital Number: Effective Repository Date:2017-11-19 11/02/2017 JEFFERY [place] [id number] Primary Insurance:SELF NOT GIVENUNK [place] Effective Hospital [id number]: (330) Date:2017-11-[address] [place] [address] () 10/22/2017 JEFFERY [place] [id number] Primary JEFFERYEKTA Pearson [place], Insurance:MEDICARE WIRTDOB: [facility] [address]Lhc: (330) PART A BPolicy Number: [id number] [place] [address] () [id number] Repository Date:2017-10-22 10/22/2017 Secondary JEFFERY E [place] Insurance:HUMANA WIRTDOB: [facility] [id number] Hospital Number: Repository [id number] Date:0334-11-64[address] [place] [address]SE: 10/22/2017 Tertiary NOT GIVENUNK Lili Insurance:SELF PAY [facility] Hospital Number: Effective Repository Date:2017-10-22 10/12/2017 JEFFERY [place] [id number] Primary JEFFERY E [place] SARAH [place], Insurance:MEDICARE WIRTDOB: [facility] [address]Mmv: (330) PART A BPolicy Number: [id number] [place] [address] () [id number] Repository Date:2017-10-12 10/12/2017 Secondary JEFFERY Mark [place] Insurance:HUMANA WIRTDOB: [facility] [id number] Hospital Number: Repository [id number] Date:5818-14-90[address] [place] [address]PY: 10/12/2017 Tertiary NOT GIVENUNK Lili Insurance:SELF PAY [facility] Hospital Number: Effective Repository Date:2017-10-12 09/27/2017 JEFFERY [place] [id number] Primary JEFFERY E Lili SARAH Insurance:MEDICARE WIRTDOB: [place] PART A BPolicy Number: [id number] Hospital [address]Kox: (330) [id number] Repository [phone] () Date:2017-09-27 09/27/2017 Secondary JEFFERY Pearson Insurance:HUMANA WIRTDOB: [facility] [id number] Hospital Number: Repository [id number] Date:7647-06-16AN[address] [address]UZ: 09/27/2017 Tertiary NOT GIVENUNK [place] Insurance:SELF PAY [facility] Number: Effective Repository Date:2017-09-27 08/19/2017 JEFFERY [id number] Primary Kumar Madrigal [place] SARAH Insurance:MEDICARE WirtDOB: [place] PART A BPolicy Number: [id number] Hospital [address]Tef: (302) [id number] Repository [phone] () Date:2017-08-19 08/19/2017 Secondary JEFFERY [place] Insurance:HUMANA WIRTDOB: [facility] [id number] Hospital Number: Repository [id number] Date:0718-86-20VN[address] [address]YO: 08/19/2017 Tertiary NOT GIVENUNK [place] Insurance:SELF PAY [facility] Number: Effective Repository Date:2017-08-19 07/15/2017 JEFFERY [id number] Primary Kumar Madrigal [place] SARAH Insurance:MEDICARE WirtDOB: [place] PART A BPolicy Number: [id number] Hospital [address]Thq: (751) [id number] Repository [phone] () Date:2017-07-15 07/15/2017 Secondary JEFFERY [place] Insurance:HUMANA WIRTDOB: [facility] [id number] Hospital Number: Repository [id number] Date:5016-23-12OG [address] [address]WH: 07/15/2017 Tertiary NOT GIVENUNK [place] Insurance:SELF PAY [facility] Number: Effective Repository Date:2017-07-15 07/01/2017 JEFFERY [id number] Primary JEFFERY E Lili SARAH Insurance:MEDICARE WIRTDOB: [place] PART A BPolicy Number: [id number] Hospital [address]Qsx: (282) [id number] Repository [phone] (HP) Date:2017-07-01 07/01/2017 Secondary JEFFERY E Lili Insurance:HUMANA WIRTDOB: [facility] [id number] Hospital Number: Repository [id number] Date:6464-61-53AO [address] [address]KS: 07/01/2017 Tertiary NOT GIVENUNK [place] Insurance:SELF PAY [facility] Hospital Number: Effective Repository Date:2017-07-01 06/17/2017 JEFFERY [id number] Primary JEFFERY E Lili SARAH Insurance:MEDICARE WIRTDOB: [place] PART A BPolicy Number: [id number] Hospital [address]Vpf: 330 [id number] Repository [phone] () Date:2017-06-17 06/17/2017 Secondary JEFFERY E [place] Insurance:HUMANA WIRTDOB: [facility] [id number] Hospital Number: Repository [id number] Date:3583-44-34FQ [address] [address]UO: 06/17/2017 Tertiary NOT GIVENUNK Lili Insurance:SELF PAY [facility] Hospital Number: Effective Repository Date:2017-06-17 06/04/2017 KUMAR WIRTDOB: Primary KUMAR WIRTDOB: [facility] Insurance:MEDICARE A [id number] SARAH AND BPolicy Number: Repository [place] [id number] [address]Hnx: (951) Date: [phone] (HP) 06/04/2017 Secondary KUMAR WIRTDOB: [facility] Insurance:HUMANA [id number] MEDICARE Repository SUPPLEMENTPolicy Number: [id number] Date: 05/18/2017 JEFFERY [id number] Primary JEFFERY SMITH Insurance:MEDICARE WIRTDOB: [place] PART A BPolicy Number: [id number] Hospital [address]Qpk: (397) [id number] Repository [phone] () Date:2017-05-18 05/18/2017 Secondary JEFFERY Pearson Insurance:HUMANA WIRTDOB: [facility] [id number] Hospital Number: Repository [id number] Date:2557-30-45SK[address] [address]WM: 05/18/2017 Tertiary NOT GIVENUNK Lili Insurance:SELF PAY [facility] Number: Effective Repository Date:2017-05-18
== END ==
LOC: OLS.WHLTSB 04:00
PROVIDERS: Visit Provider Family Medicine
DX: I48.91 Unspecified atrial fibrillation (principal); I10 Essential (primary) hypertension; E78.5 Hyperlipidemia, unspecified; E03.9 Hypothyroidism, unspecified; E11.9 Type 2 diabetes mellitus without complications; M31.6 Other giant cell arteritis
CPT/HCPCS: 36415; 80048; 80061; 83036; 84443; 85027; 85610; 85652

== ENCOUNTER → 2018-05-23 04:00 | Outpatient (REF) | payer MEDICARE, OTHER, SELFPAY ==
[2018-05-23 07:16] LABS: International Normalized Ratio 2.9; Prothrombin Time (Protime)PT. 30.4 SECONDS (11.7-14.9)
[2018-05-23 07:37] LABS: Erythrocyte Sedimentation Rate 28 mm/hr (0-30)
== END ==
LOC: OLS.WHLTSB 04:00
PROVIDERS: Visit Provider Family Medicine
DX: I48.91 Unspecified atrial fibrillation (principal); M31.6 Other giant cell arteritis; Z79.01 Long term (current) use of anticoagulants
CPT/HCPCS: 36415; 85610; 85652

== ENCOUNTER → 2018-06-20 04:00 | Outpatient (REF) | payer MEDICARE, OTHER, SELFPAY ==
[2018-06-20 06:19] LABS: International Normalized Ratio 3.2; Prothrombin Time (Protime)PT. 33.3 SECONDS (11.7-14.9)
[2018-06-20 06:32] LABS: Anion Gap 9 (5-15); BUN 32 mg/dL (7-18); BUN/Creat Ratio 15.9 RATIO (10-20); Calcium,Total 7.8 mg/dL (8.5-10.1); Chloride 106 mmol/L (98-107); Creatinine, Serum 2.01 mg/dL (0.55-1.02); EST Glomerular Filtration Rate 26 mL/min (>60); Est Glom Filt Rate - Afr Amer 31 mL/min (>60); Glucose 93 mg/dL (74-106); Potassium 4.7 mmol/L (3.5-5.1); Sodium Level 145 mmol/L (136-145)
[2018-06-20 06:38] LABS: Hematocrit 33.9 % (37-47); Mean Corp Hgb Conc 29.5 g/gl (32-36); Mean Corpuscular Hgb 25.3 pg (27.0-32.0); Mean Corpuscular Volume 85.8 fL (81-99); Mean Platelet Vol. 10.4 fl (6.2-12.0); Platelet Count 255 K/mm3 (150-450); RBC Distribution Width CV 18.1 % (11.6-14.6); RBC Distribution Width SD 56.9 fl (35.1-43.9); Red Blood Count 3.95 M/mm3 (4.2-5.4); White Blood Count 14.5 K/mm3 (4.4-11.0)
[2018-06-20 06:41] LABS: Erythrocyte Sedimentation Rate 32 mm/hr (0-30); Scan Indicated on CBC? Y/N NO
== END ==
LOC: OLS.WHLTSB 04:00
PROVIDERS: Visit Provider Family Medicine
DX: I48.91 Unspecified atrial fibrillation (principal); I10 Essential (primary) hypertension; M31.6 Other giant cell arteritis
CPT/HCPCS: 36415; 80048; 85027; 85610; 85652

== ENCOUNTER → 2018-07-18 04:00 | Outpatient (REF) | payer MEDICARE, OTHER, SELFPAY ==
[2018-07-18 08:45] LABS: International Normalized Ratio 2.8; Prothrombin Time (Protime)PT. 29.8 SECONDS (11.7-14.9)
[2018-07-18 09:08] LABS: Erythrocyte Sedimentation Rate 23 mm/hr (0-30)
== END ==
LOC: OLS.WHLTSB 04:00
PROVIDERS: Visit Provider Family Medicine
DX: I48.91 Unspecified atrial fibrillation (principal); M31.6 Other giant cell arteritis
CPT/HCPCS: 36415; 85610; 85652

== ENCOUNTER → 2018-08-18 05:00 | Outpatient (REF) | payer MEDICARE, OTHER, SELFPAY ==
[2018-08-18 08:54] LABS: Hemoglobin 10.5 g/dl (12.0-15.0); Mean Corpuscular Hgb 24.6 pg (27.0-32.0); Mean Platelet Vol. 10.3 fl (6.2-12.0); Platelet Count 230 K/mm3 (150-450); RBC Distribution Width CV 18.9 % (11.6-14.6); RBC Distribution Width SD 55.1 fl (35.1-43.9); Red Blood Count 4.27 M/mm3 (4.2-5.4); White Blood Count 8.6 K/mm3 (4.4-11.0)
[2018-08-18 08:55] LABS: Scan Indicated on CBC? Y/N NO
[2018-08-18 08:56] LABS: Erythrocyte Sedimentation Rate 31 mm/hr (0-30)
[2018-08-18 09:07] LABS: International Normalized Ratio 2.9; Prothrombin Time (Protime)PT. 30.3 SECONDS (11.7-14.9)
[2018-08-18 09:14] LABS: Alanine Aminotransfer ALT/SGPT 24 U/L (13-56); Anion Gap 4 (5-15); BUN 16 mg/dL (7-18); BUN/Creat Ratio 9.6 RATIO (10-20); Calcium,Total 7.4 mg/dL (8.5-10.1); Chloride 102 mmol/L (98-107); Creatinine, Serum 1.66 mg/dL (0.55-1.02); EST Glomerular Filtration Rate 32 mL/min (>60); Est Glom Filt Rate - Afr Amer 39 mL/min (>60); Glucose 82 mg/dL (74-106); Potassium 3.7 mmol/L (3.5-5.1); Sodium Level 138 mmol/L (136-145); Thyroid Stim Hormone (TSH) 2.14 uIU/mL (0.358-3.74)
== END ==
LOC: OLS.WHLTSB 05:00
PROVIDERS: Visit Provider Family Medicine
DX: I48.91 Unspecified atrial fibrillation (principal); I10 Essential (primary) hypertension; E03.9 Hypothyroidism, unspecified; M31.6 Other giant cell arteritis
CPT/HCPCS: 36415; 80048; 84443; 84460; 85027; 85610; 85652

== ENCOUNTER → 2018-08-23 05:00 | Outpatient (REF) | payer MEDICARE, OTHER, SELFPAY ==
[2018-08-23 08:21] LABS: BUN 20 mg/dL (7-18); Creatinine, Serum 1.89 mg/dL (0.55-1.02); Glucose 82 mg/dL (74-106)
[2018-08-23 08:22] LABS: Anion Gap 7 (5-15); BUN/Creat Ratio 10.6 RATIO (10-20); Chloride 101 mmol/L (98-107); EST Glomerular Filtration Rate 28 mL/min (>60); Est Glom Filt Rate - Afr Amer 34 mL/min (>60); Potassium 3.1 mmol/L (3.5-5.1); Sodium Level 137 mmol/L (136-145)
== END ==
LOC: OLS.WHLTSB 05:00
PROVIDERS: Visit Provider Internal Medicine Cardiovascular Disease
DX: I10 Essential (primary) hypertension (principal)
CPT/HCPCS: 36415; 80048

== ENCOUNTER → 2018-08-30 05:00 | Outpatient (REF) | payer MEDICARE, OTHER, SELFPAY ==
[2018-08-30 08:50] LABS: Hematocrit 37.3 % (37-47); Hemoglobin 11.5 g/dl (12.0-15.0); Mean Corp Hgb Conc 30.8 g/gl (32-36); Mean Corpuscular Hgb 24.9 pg (27.0-32.0); Mean Corpuscular Volume 80.9 fL (81-99); Platelet Count 334 K/mm3 (150-450); RBC Distribution Width CV 19.2 % (11.6-14.6); RBC Distribution Width SD 54.6 fl (35.1-43.9); Red Blood Count 4.61 M/mm3 (4.2-5.4); White Blood Count 14.1 K/mm3 (4.4-11.0)
[2018-08-30 08:53] LABS: ALB/GLOB Ratio 0.9 RATIO (0.9-2.4); AST(SGOT) 26 U/L (15-37); Alanine Aminotransfer ALT/SGPT 22 U/L (13-56); Albumin, Serum 2.8 g/dL (3.2-5.0); Alkaline Phosphatase 62 U/L (45-117); Anion Gap 7 (5-15); BUN 24 mg/dL (7-18); BUN/Creat Ratio 11.9 RATIO (10-20); Chloride 100 mmol/L (98-107); Creatinine, Serum 2.02 mg/dL (0.55-1.02); EST Glomerular Filtration Rate 26 mL/min (>60); Est Glom Filt Rate - Afr Amer 31 mL/min (>60); Globulin 3.2 g/dL (2.2-4.2); Glucose 98 mg/dL (74-106); Potassium 4.2 mmol/L (3.5-5.1); Sodium Level 134 mmol/L (136-145)
[2018-08-30 09:00] LABS: Scan Indicated on CBC? Y/N NO
== END ==
LOC: OLS.WHLTSB 05:00
PROVIDERS: Visit Provider Family Medicine
DX: I10 Essential (primary) hypertension (principal); R53.83 Other fatigue
CPT/HCPCS: 36415; 80053; 85027

== ENCOUNTER → 2018-09-05 04:00 | Outpatient (REF) | payer MEDICARE, OTHER, SELFPAY ==
[2018-09-05 08:11] LABS: Anion Gap 8 (5-15); BUN 29 mg/dL (7-18); BUN/Creat Ratio 15.8 RATIO (10-20); Calcium,Total 8.5 mg/dL (8.5-10.1); Chloride 100 mmol/L (98-107); Creatinine, Serum 1.84 mg/dL (0.55-1.02); EST Glomerular Filtration Rate 29 mL/min (>60); Est Glom Filt Rate - Afr Amer 35 mL/min (>60); Glucose 84 mg/dL (74-106); Potassium 4.2 mmol/L (3.5-5.1); Sodium Level 137 mmol/L (136-145)
== END ==
LOC: OLS.WHLTSB 04:00
PROVIDERS: Visit Provider Family Medicine
DX: R53.83 Other fatigue (principal)
CPT/HCPCS: 36415; 80048

== ENCOUNTER → 2018-09-15 05:00 | Outpatient (REF) | payer MEDICARE, OTHER, SELFPAY ==
[2018-09-15 09:03] LABS: International Normalized Ratio 2.7; Prothrombin Time (Protime)PT. 28.8 SECONDS (11.7-14.9)
[2018-09-15 09:13] LABS: Erythrocyte Sedimentation Rate 41 mm/hr (0-30)
== END ==
LOC: OLS.WHLTSB 05:00
PROVIDERS: Visit Provider Family Medicine
DX: I48.91 Unspecified atrial fibrillation (principal)
CPT/HCPCS: 36415; 85610; 85652

== ENCOUNTER → 2018-10-20 05:00 | Outpatient (REF) | payer MEDICARE, OTHER, SELFPAY ==
[2018-10-20 08:02] LABS: Absolute Lymphocyte Count 1.98 X10^3/ul (0.83-4.51); Absolute Neutrophil Count 8.8 X10^3/uL (2.0-7.7); Basophil# 0.04 X10^3/uL; Basophil% 0.3 % (0-1); Eosinophils% 1.6 % (0-5); Hematocrit 35.6 % (37-47); Lymphocyte # 1.98 X10^3/ul (4.0); Mean Corp Hgb Conc 30.9 g/gl (32-36); Mean Corpuscular Hgb 25.9 pg (27.0-32.0); Mean Platelet Vol. 10.8 fl (6.2-12.0); Monocyte% 8.1 % (0-10); Neutrophil % 71.2 % (47-70); Platelet Count 255 K/mm3 (150-450); RBC Distribution Width CV 20.4 % (11.6-14.6); RBC Distribution Width SD 61.5 fl (35.1-43.9); Red Blood Count 4.24 M/mm3 (4.2-5.4); White Blood Count 12.4 K/mm3 (4.4-11.0)
[2018-10-20 08:05] LABS: Differential Indicated SCAN CRITERIA MET; International Normalized Ratio 1.9; POSITIVE COUNT YES; POSITIVE DIFFERENTIAL NO; POSITIVE MORPHOLOGY YES; Prothrombin Time (Protime)PT. 21.3 SECONDS (11.7-14.9)
[2018-10-20 08:10] LABS: Anion Gap 11 (5-15); BUN 44 mg/dL (7-18); BUN/Creat Ratio 21.5 RATIO (10-20); Calcium,Total 8.1 mg/dL (8.5-10.1); Chloride 104 mmol/L (98-107); Cholesterol 199 mg/dL (200); Creatinine, Serum 2.05 mg/dL (0.55-1.02); EST Glomerular Filtration Rate 25 mL/min (>60); Est Glom Filt Rate - Afr Amer 31 mL/min (>60); Glucose 83 mg/dL (74-106); High Density Lipoprotein 71 mg/dL; Sodium Level 141 mmol/L (136-145); Triglycerides 136 mg/dL; Very Low Density Lipoprotein 27 mg/dL (5-40)
[2018-10-21 14:22] LABS: Pathologist Review Reviewed
== END ==
LOC: OLS.WHLTSB 05:00
PROVIDERS: Visit Provider Family Medicine
DX: E78.5 Hyperlipidemia, unspecified (principal); Z79.01 Long term (current) use of anticoagulants
CPT/HCPCS: 36415; 80048; 80061; 83036; 84443; 85025; 85610

== ENCOUNTER → 2018-11-18 05:45 | Outpatient (REF) | payer MEDICARE, OTHER, SELFPAY ==
[2018-11-18 06:59] LABS: Erythrocyte Sedimentation Rate 26 mm/hr (0-30)
[2018-11-18 07:01] LABS: International Normalized Ratio 2.5; Prothrombin Time (Protime)PT. 26.7 SECONDS (11.7-14.9)
== END ==
LOC: OLS.WHLTSB 05:45
PROVIDERS: Visit Provider Family Medicine
DX: I48.91 Unspecified atrial fibrillation (principal)
CPT/HCPCS: 36415; 85610; 85652

== ENCOUNTER → 2018-12-02 03:00 | Outpatient (REF) | payer MEDICARE, OTHER, SELFPAY | LOC: OLS.WHLTSB 03:00 | PROVIDERS: Visit Provider Family Medicine | DX: S31.40XA Unspecified open wound of vagina and vulva, initial encounter (principal) | CPT/HCPCS: 87070; 87077; 87186; 87205 ==

== ENCOUNTER → 2018-12-05 | Outpatient (REF) | payer MEDICARE, OTHER, SELFPAY ==
[2018-12-05 07:53] LABS: International Normalized Ratio 2.3; Prothrombin Time (Protime)PT. 25.5 SECONDS (11.7-14.9)
== END | disposition home or self-care (01) ==
LOC: OLS.WHLTSB 05:40
PROVIDERS: Visit Provider Family Medicine
DX: I48.91 Unspecified atrial fibrillation (principal); E11.22 Type 2 diabetes mellitus with diabetic chronic kidney disease; I12.9 Hypertensive chronic kidney disease with stage 1 through stage 4 chronic kidney disease, or unspecified chronic kidney disease; N18.3 Chronic kidney disease, stage 3 (moderate); E78.5 Hyperlipidemia, unspecified; E03.9 Hypothyroidism, unspecified
CPT/HCPCS: 36415; 85610

== ENCOUNTER → 2018-12-08 | Outpatient (REF) | payer MEDICARE, OTHER, SELFPAY ==
[2018-12-08 08:57] LABS: International Normalized Ratio 2.6
== END | disposition home or self-care (01) ==
LOC: OLS.WHLTSB 05:00
PROVIDERS: Visit Provider Family Medicine
DX: Z79.01 Long term (current) use of anticoagulants (principal)
CPT/HCPCS: 36415; 85610

== ENCOUNTER → 2018-12-12 | Outpatient (REF) | payer MEDICARE, OTHER, SELFPAY ==
[2018-12-12 07:34] LABS: Prothrombin Time (Protime)PT. 38.2 SECONDS (11.7-14.9)
[2018-12-12 07:55] LABS: International Normalized Ratio 3.9
== END | disposition home or self-care (01) ==
LOC: OLS.WHLTSB 05:00
PROVIDERS: Visit Provider Family Medicine
DX: R53.81 Other malaise (principal); Z91.81 History of falling; R41.841 Cognitive communication deficit; R26.2 Difficulty in walking, not elsewhere classified; M62.81 Muscle weakness (generalized); I48.2 Chronic atrial fibrillation
CPT/HCPCS: 36415; 85610

== ENCOUNTER → 2018-12-15 05:00 | Outpatient (REF) | payer MEDICARE, OTHER, SELFPAY ==
[2018-12-15 10:06] LABS: Absolute Lymphocyte Count 2.39 X10^3/uL (0.83-4.51); Absolute Neutrophil Count 7.1 X10^3/uL (2.0-7.7); Basophil# 0.07 X10^3/uL; Basophil% 0.6 % (0-1); Eosinophil# 0.12 X10^3/uL; Eosinophils% 1.1 % (0-5); Hematocrit 35.6 % (37-47); Hemoglobin 11.2 g/dL (12.0-15.0); Lymphocyte # 2.39 X10^3/ul (4.0); Lymphocyte % 22.2 % (19-41); Mean Corp Hgb Conc 31.5 g/dL (32-36); Mean Corpuscular Hgb 27.7 pg (27.0-32.0); Mean Corpuscular Volume 88.1 fL (81-99); Mean Platelet Vol. 11.1 fl (6.2-12.0); Monocyte% 8.3 % (0-10); NRBC Flagged by Analyzer 0 % (0-5); Neutrophil # 7.06 X10^3/uL (2.7-7.7); Neutrophil % 65.6 % (47-70); Platelet Count 234 K/mm3 (150-450); RBC Distribution Width CV 17.9 % (11.6-14.6); RBC Distribution Width SD 57.9 fl (35.1-43.9); Red Blood Count 4.04 M/mm3 (4.2-5.4); White Blood Count 10.8 K/mm3 (4.4-11.0)
[2018-12-15 10:16] LABS: ALB/GLOB Ratio 0.6 RATIO (0.9-2.4); AST(SGOT) 18 U/L (15-37); Alanine Aminotransfer ALT/SGPT 23 U/L (13-56); Albumin, Serum 1.9 g/dL (3.2-5.0); Alkaline Phosphatase 82 U/L (45-117); Anion Gap 11 (5-15); BUN 49 mg/dL (7-18); BUN/Creat Ratio 24.1 RATIO (10-20); Calcium,Total 7.5 mg/dL (8.5-10.1); Chloride 104 mmol/L (98-107); Creatinine, Serum 2.03 mg/dL (0.55-1.02); EST Glomerular Filtration Rate 26 mL/min (>60); Est Glom Filt Rate - Afr Amer 31 mL/min (>60); Glucose 78 mg/dL (74-106); Protein, Total 4.9 g/dL (6.4-8.2); Sodium Level 141 mmol/L (136-145)
[2018-12-15 10:17] LABS: Erythrocyte Sedimentation Rate 20 mm/hr (0-30)
[2018-12-15 10:25] LABS: International Normalized Ratio 3.8; Prothrombin Time (Protime)PT. 37.7 SECONDS (11.7-14.9)
== END ==
LOC: OLS.WHLTSB 05:00
PROVIDERS: Visit Provider Family Medicine
DX: Z91.81 History of falling (principal); R53.81 Other malaise; R41.841 Cognitive communication deficit; R27.8 Other lack of coordination; R26.2 Difficulty in walking, not elsewhere classified; M62.81 Muscle weakness (generalized); I10 Essential (primary) hypertension; Z79.01 Long term (current) use of anticoagulants
CPT/HCPCS: 36415; 80053; 85025; 85610; 85652

== ENCOUNTER → 2018-12-29 04:30 | Outpatient (REF) | payer MEDICARE, OTHER, SELFPAY ==
[2018-12-29 08:27] LABS: International Normalized Ratio 1.3; Prothrombin Time (Protime)PT. 15.7 SECONDS (11.7-14.9)
== END ==
LOC: OLS.WHLTSB 04:30
PROVIDERS: Visit Provider Family Medicine
DX: Z91.81 History of falling (principal); R53.81 Other malaise; R41.841 Cognitive communication deficit; R27.8 Other lack of coordination; R26.2 Difficulty in walking, not elsewhere classified; M62.81 Muscle weakness (generalized); I48.2 Chronic atrial fibrillation
CPT/HCPCS: 36415; 85610

== ENCOUNTER → 2019-01-09 04:00 | Outpatient (REF) | payer MEDICARE, OTHER, SELFPAY ==
[2019-01-09 08:12] LABS: Prothrombin Time Fingerstick 20.4 SEC (11.9-14.4)
== END ==
LOC: OLS.WHLTSB 04:00
PROVIDERS: Visit Provider Family Medicine
DX: Z91.81 History of falling (principal); R53.81 Other malaise; R41.841 Cognitive communication deficit; R27.8 Other lack of coordination; R26.2 Difficulty in walking, not elsewhere classified; M62.81 Muscle weakness (generalized); I48.2 Chronic atrial fibrillation
CPT/HCPCS: 36416; 85610

== ENCOUNTER → 2019-01-20 05:00 | Outpatient (REF) | payer MEDICARE, OTHER, SELFPAY ==
[2019-01-20 07:44] LABS: Erythrocyte Sedimentation Rate 48 mm/hr (0-30)
== END ==
LOC: OLS.WHLTSB 05:00
PROVIDERS: Visit Provider Family Medicine
DX: Z91.81 History of falling (principal); R53.81 Other malaise; R41.841 Cognitive communication deficit; R27.8 Other lack of coordination; R26.2 Difficulty in walking, not elsewhere classified; M62.81 Muscle weakness (generalized); I48.2 Chronic atrial fibrillation
CPT/HCPCS: 36415; 85652

== ENCOUNTER → 2019-01-23 05:00 | Outpatient (REF) | payer MEDICARE, OTHER, SELFPAY ==
[2019-01-23 08:02] LABS: Prothrombin Time Fingerstick 22.4 SEC (11.9-14.4)
== END ==
LOC: OLS.WHLTSB 05:00
PROVIDERS: Visit Provider Family Medicine
DX: Z91.81 History of falling (principal); R53.81 Other malaise; R41.841 Cognitive communication deficit; R27.8 Other lack of coordination; R26.2 Difficulty in walking, not elsewhere classified; M62.81 Muscle weakness (generalized); I48.2 Chronic atrial fibrillation
CPT/HCPCS: 36416; 85610

== ENCOUNTER → 2019-02-16 | Outpatient (REF) | payer MEDICARE, OTHER, SELFPAY ==
[2019-02-16 08:00] LABS: Absolute Lymphocyte Count 1.92 X10^3/uL (0.83-4.51); Absolute Neutrophil Count 6.7 X10^3/uL (2.0-7.7); Basophil# 0.06 X10^3/uL; Basophil% 0.6 % (0-1); Eosinophil# 0.14 X10^3/uL; Eosinophils% 1.4 % (0-5); Hematocrit 36.9 % (37-47); Hemoglobin 11.1 g/dL (12.0-15.0); Lymphocyte # 1.92 X10^3/ul (4.0); Lymphocyte % 19.7 % (19-41); Mean Corp Hgb Conc 30.1 g/dL (32-36); Mean Corpuscular Hgb 27.5 pg (27.0-32.0); Mean Corpuscular Volume 91.3 fL (81-99); Mean Platelet Vol. 10.9 fl (6.2-12.0); Monocyte# 0.71 X10^3/uL; Monocyte% 7.3 % (0-10); NRBC Flagged by Analyzer 0 % (0-5); Neutrophil # 6.71 X10^3/uL (2.7-7.7); Neutrophil % 68.7 % (47-70); Platelet Count 230 K/mm3 (150-450); RBC Distribution Width CV 16.9 % (11.6-14.6); RBC Distribution Width SD 56.7 fl (35.1-43.9); Red Blood Count 4.04 M/mm3 (4.2-5.4); White Blood Count 9.8 K/mm3 (4.4-11.0)
[2019-02-16 08:07] LABS: Erythrocyte Sedimentation Rate 28 mm/hr (0-30)
[2019-02-16 08:28] LABS: Anion Gap 10 (5-15); BUN 51 mg/dL (7-18); BUN/Creat Ratio 22.6 RATIO (10-20); Calcium,Total 7.8 mg/dL (8.5-10.1); Chloride 108 mmol/L (98-107); Creatinine, Serum 2.26 mg/dL (0.55-1.02); EST Glomerular Filtration Rate 23 mL/min (>60); Est Glom Filt Rate - Afr Amer 27 mL/min (>60); Glucose 73 mg/dL (74-106); Potassium 4.1 mmol/L (3.5-5.1); Sodium Level 143 mmol/L (136-145)
[2019-02-16 08:33] LABS: International Normalized Ratio 1.5; Prothrombin Time (Protime)PT. 18.4 SECONDS (11.7-14.9)
== END | disposition home or self-care (01) ==
LOC: OLS.WHLTSB 05:00
PROVIDERS: Visit Provider Family Medicine
DX: I10 Essential (primary) hypertension (principal); I48.20 Chronic atrial fibrillation, unspecified
CPT/HCPCS: 36415; 80048; 85025; 85610; 85652

== ENCOUNTER → 2019-02-28 05:00 | Outpatient (REF) | payer MEDICARE, OTHER, SELFPAY ==
[2019-02-28 07:15] LABS: Hematocrit 37.3 % (37-47); Hemoglobin 11.2 g/dL (12.0-15.0); Mean Corpuscular Hgb 27.5 pg (27.0-32.0); Mean Corpuscular Volume 91.4 fL (81-99); Mean Platelet Vol. 10.6 fl (6.2-12.0); Platelet Count 256 K/mm3 (150-450); RBC Distribution Width CV 16.7 % (11.6-14.6); RBC Distribution Width SD 55.2 fl (35.1-43.9); Red Blood Count 4.08 M/mm3 (4.2-5.4); White Blood Count 11.2 K/mm3 (4.4-11.0)
[2019-02-28 07:37] LABS: Anion Gap 8 (5-15); BUN 43 mg/dL (7-18); Calcium,Total 8.3 mg/dL (8.5-10.1); Chloride 103 mmol/L (98-107); Creatinine, Serum 2.26 mg/dL (0.55-1.02); EST Glomerular Filtration Rate 23 mL/min (>60); Est Glom Filt Rate - Afr Amer 27 mL/min (>60); Glucose 81 mg/dL (74-106); Potassium 4.3 mmol/L (3.5-5.1); Sodium Level 140 mmol/L (136-145)
== END ==
LOC: OLS.WHLTSB 05:00
PROVIDERS: Visit Provider Family Medicine
DX: I63.50 Cerebral infarction due to unspecified occlusion or stenosis of unspecified cerebral artery (principal); Z91.81 History of falling; R53.81 Other malaise; R41.841 Cognitive communication deficit; R27.8 Other lack of coordination; R26.2 Difficulty in walking, not elsewhere classified; M62.81 Muscle weakness (generalized)
CPT/HCPCS: 36415; 80048; 85027

== ENCOUNTER → 2019-03-02 05:00 | Outpatient (REF) | payer MEDICARE, OTHER, SELFPAY ==
[2019-03-02 09:25] LABS: Prothrombin Time Fingerstick 26.4 SEC (11.9-14.4)
== END ==
LOC: OLS.WHLTSB 05:00
PROVIDERS: Visit Provider Family Medicine
DX: I48.20 Chronic atrial fibrillation, unspecified (principal)
CPT/HCPCS: 36416; 85610

== ENCOUNTER → 2019-04-06 06:55 | Outpatient (REF) | payer MEDICARE, OTHER, SELFPAY ==
[2019-04-06 09:19] LABS: International Normalized Ratio 1.8; Prothrombin Time (Protime)PT. 21.1 SECONDS (11.7-14.9)
== END ==
LOC: OLS.WHLTSB 06:55
PROVIDERS: Visit Provider Family Medicine
DX: I48.20 Chronic atrial fibrillation, unspecified (principal)
CPT/HCPCS: 36415; 85610

== ENCOUNTER → 2019-04-20 05:00 | Outpatient (REF) | payer MEDICARE, OTHER, SELFPAY ==
[2019-04-20 08:09] LABS: Cholesterol 204 mg/dL (200); High Density Lipoprotein 62 mg/dL; Thyroid Stim Hormone (TSH) 2.18 uIU/mL (0.358-3.74); Triglycerides 128 mg/dL; Very Low Density Lipoprotein 26 mg/dL (5-40)
[2019-04-20 08:19] LABS: Hemoglobin A1c 5.9 % (4.2-6.3)
== END ==
LOC: OLS.WHLTSB 05:00
PROVIDERS: Visit Provider Family Medicine
DX: E11.9 Type 2 diabetes mellitus without complications (principal); R53.81 Other malaise; R41.841 Cognitive communication deficit; R27.8 Other lack of coordination; R26.2 Difficulty in walking, not elsewhere classified; M62.81 Muscle weakness (generalized); Z91.81 History of falling
CPT/HCPCS: 36415; 80061; 83036; 84443

== ENCOUNTER → 2019-05-04 05:00 | Outpatient (REF) | payer MEDICARE, OTHER, SELFPAY ==
[2019-05-04 09:11] LABS: International Normalized Ratio 1.8; Prothrombin Time (Protime)PT. 21.1 SECONDS (11.7-14.9)
== END ==
LOC: OLS.WHLTSB 05:00
PROVIDERS: Visit Provider Family Medicine
DX: I48.20 Chronic atrial fibrillation, unspecified (principal)
CPT/HCPCS: 36415; 85610

== ENCOUNTER → 2019-05-19 05:00 | Outpatient (REF) | payer MEDICARE, OTHER, SELFPAY ==
[2019-05-19 07:31] LABS: Anion Gap 5 (5-15); BUN 43 mg/dL (7-18); BUN/Creat Ratio 21.6 RATIO (10-20); Calcium,Total 7.7 mg/dL (8.5-10.1); Chloride 107 mmol/L (98-107); Creatinine, Serum 1.99 mg/dL (0.55-1.02); EST Glomerular Filtration Rate 26 mL/min (>60); Est Glom Filt Rate - Afr Amer 32 mL/min (>60); Glucose 74 mg/dL (74-106); Potassium 4.2 mmol/L (3.5-5.1); Sodium Level 141 mmol/L (136-145)
[2019-05-19 07:35] LABS: Erythrocyte Sedimentation Rate 31 mm/hr (0-30)
[2019-05-19 07:37] LABS: Absolute Lymphocyte Count 1.89 X10^3/uL (0.83-4.51); Absolute Neutrophil Count 8.8 X10^3/uL (2.0-7.7); Basophil% 0.8 % (0-1); Eosinophils% 0.8 % (0-5); Lymphocyte # 1.89 X10^3/ul (4.0); Lymphocyte % 15.6 % (19-41); Mean Corp Hgb Conc 30.6 g/dL (32-36); Mean Corpuscular Hgb 28.1 pg (27.0-32.0); Mean Corpuscular Volume 91.8 fL (81-99); Mean Platelet Vol. 10.8 fl (6.2-12.0); Monocyte# 0.97 X10^3/uL; NRBC Flagged by Analyzer 0 % (0-5); Neutrophil # 8.78 X10^3/uL (2.7-7.7); Neutrophil % 72.3 % (47-70); Platelet Count 262 K/mm3 (150-450); RBC Distribution Width CV 17.6 % (11.6-14.6); RBC Distribution Width SD 58.7 fl (35.1-43.9); Red Blood Count 3.92 M/mm3 (4.2-5.4); White Blood Count 12.1 K/mm3 (4.4-11.0)
[2019-05-19 07:40] LABS: Prothrombin Time (Protime)PT. 22.3 SECONDS (11.7-14.9)
== END ==
LOC: OLS.WHLTSB 05:00
PROVIDERS: Visit Provider Family Medicine
DX: I10 Essential (primary) hypertension (principal); Z91.81 History of falling; R53.81 Other malaise; R41.841 Cognitive communication deficit; R27.8 Other lack of coordination; R26.2 Difficulty in walking, not elsewhere classified; M62.81 Muscle weakness (generalized); I48.20 Chronic atrial fibrillation, unspecified
CPT/HCPCS: 36415; 80048; 85025; 85610; 85652

== ENCOUNTER → 2019-07-06 05:00 | Outpatient (REF) | payer MEDICARE, OTHER, SELFPAY ==
[2019-07-06 08:05] LABS: Prothrombin Time Fingerstick 27.1 SEC (11.9-14.4)
== END ==
LOC: OLS.WHLTSB 05:00
PROVIDERS: Visit Provider Family Medicine
DX: I48.20 Chronic atrial fibrillation, unspecified (principal)
CPT/HCPCS: 36416; 85610

== ENCOUNTER → 2019-08-03 05:00 | Outpatient (REF) | payer MEDICARE, OTHER, SELFPAY ==
[2019-08-03 08:50] LABS: Prothrombin Time Fingerstick 29.3 SEC (11.9-14.4)
== END ==
LOC: OLS.WHLTSB 05:00
PROVIDERS: Visit Provider Family Medicine
DX: I48.20 Chronic atrial fibrillation, unspecified (principal)
CPT/HCPCS: 36416; 85610

== ENCOUNTER → 2019-10-05 05:00 | Outpatient (REF) | payer MEDICARE, OTHER, SELFPAY ==
[2019-10-05 10:21] LABS: Prothrombin Time Fingerstick 32.7 SEC (11.9-14.4)
== END ==
LOC: OLS.WHLTSB 05:00
PROVIDERS: Visit Provider Family Medicine
DX: I48.20 Chronic atrial fibrillation, unspecified (principal); R53.81 Other malaise; R41.841 Cognitive communication deficit; R27.8 Other lack of coordination; R26.2 Difficulty in walking, not elsewhere classified; M62.81 Muscle weakness (generalized); Z91.81 History of falling
CPT/HCPCS: 36416; 85610

== ENCOUNTER → 2019-10-19 05:00 | Outpatient (REF) | payer MEDICARE, OTHER, SELFPAY ==
[2019-10-19 08:41] LABS: Hemoglobin A1c 5.8 % (3.8-5.6)
[2019-10-19 08:43] LABS: Cholesterol 210 mg/dL (200); High Density Lipoprotein 65 mg/dL; Thyroid Stim Hormone (TSH) 1.15 uIU/mL (0.358-3.74); Triglycerides 144 mg/dL; Very Low Density Lipoprotein 29 mg/dL (5-40)
== END ==
LOC: OLS.WHLTSB 05:00
PROVIDERS: Visit Provider Family Medicine
DX: E78.5 Hyperlipidemia, unspecified (principal); R53.81 Other malaise; R41.841 Cognitive communication deficit; R27.8 Other lack of coordination; R26.2 Difficulty in walking, not elsewhere classified; M62.81 Muscle weakness (generalized); Z91.81 History of falling; Z79.899 Other long term (current) drug therapy
CPT/HCPCS: 36415; 80061; 83036; 84443

== ENCOUNTER → 2019-11-02 05:35 | Outpatient (REF) | payer MEDICARE, OTHER, SELFPAY ==
[2019-11-02 08:53] LABS: Absolute Lymphocyte Count 2.14 X10^3/uL (0.83-4.51); Absolute Neutrophil Count 7.1 X10^3/uL (2.0-7.7); Basophil# 0.05 X10^3/uL; Basophil% 0.5 % (0-1); Eosinophil# 0.11 X10^3/uL; Hematocrit 37.2 % (37-47); Hemoglobin 11.2 g/dL (12.0-15.0); Lymphocyte # 2.14 X10^3/ul (4.0); Lymphocyte % 20.4 % (19-41); Mean Corp Hgb Conc 30.1 g/dL (32-36); Mean Corpuscular Hgb 28.1 pg (27.0-32.0); Mean Corpuscular Volume 93.5 fL (81-99); Mean Platelet Vol. 11.3 fl (6.2-12.0); Monocyte# 0.77 X10^3/uL; Monocyte% 7.3 % (0-10); NRBC Flagged by Analyzer 0 % (0-5); Neutrophil # 7.06 X10^3/uL (2.7-7.7); Neutrophil % 67.4 % (47-70); Platelet Count 267 K/mm3 (150-450); RBC Distribution Width CV 17.3 % (11.6-14.6); RBC Distribution Width SD 59.8 fl (35.1-43.9); Red Blood Count 3.98 M/mm3 (4.2-5.4); White Blood Count 10.5 K/mm3 (4.4-11.0)
[2019-11-02 08:57] LABS: International Normalized Ratio 2.7; Prothrombin Time (Protime)PT. 28.5 SECONDS (11.7-14.9)
[2019-11-02 08:59] LABS: Anion Gap 10 (5-15); BUN 36 mg/dL (7-18); BUN/Creat Ratio 18.8 RATIO (10-20); Chloride 104 mmol/L (98-107); Creatinine, Serum 1.92 mg/dL (0.55-1.02); EST Glomerular Filtration Rate 27 mL/min (>60); Est Glom Filt Rate - Afr Amer 33 mL/min (>60); Glucose 75 mg/dL (74-106); Sodium Level 141 mmol/L (136-145)
[2019-11-02 09:12] LABS: Erythrocyte Sedimentation Rate 34 mm/hr (0-30)
== END ==
LOC: OLS.WHLTSB 05:35
PROVIDERS: Visit Provider Family Medicine
DX: I48.20 Chronic atrial fibrillation, unspecified (principal); N18.3 Chronic kidney disease, stage 3 (moderate); R53.81 Other malaise; R41.841 Cognitive communication deficit; R27.8 Other lack of coordination; R26.2 Difficulty in walking, not elsewhere classified; M62.81 Muscle weakness (generalized)
CPT/HCPCS: 36415; 80048; 85025; 85610; 85652

== ENCOUNTER → 2019-11-30 04:30 | Outpatient (REF) | payer MEDICARE, OTHER, SELFPAY ==
[2019-11-30 08:01] LABS: Prothrombin Time Fingerstick 27.9 SEC (11.9-14.4)
== END ==
LOC: OLS.WHLTSB 04:30
PROVIDERS: Referring Provider Family Medicine; Visit Provider Family Medicine
DX: R53.81 Other malaise (principal); I48.20 Chronic atrial fibrillation, unspecified; R41.841 Cognitive communication deficit; R27.8 Other lack of coordination; R26.2 Difficulty in walking, not elsewhere classified; M62.81 Muscle weakness (generalized); Z91.81 History of falling
CPT/HCPCS: 36416; 85610

== ENCOUNTER → 2020-01-04 05:00 | Outpatient (REF) | payer MEDICARE, OTHER, SELFPAY ==
[2020-01-04 07:01] LABS: Prothrombin Time Fingerstick 33.7 SEC (11.9-14.4)
== END ==
LOC: OLS.WHLTSB 05:00
PROVIDERS: Visit Provider Family Medicine
DX: I48.20 Chronic atrial fibrillation, unspecified (principal); R53.81 Other malaise; R41.841 Cognitive communication deficit; R27.8 Other lack of coordination; R26.2 Difficulty in walking, not elsewhere classified; M62.81 Muscle weakness (generalized); Z91.81 History of falling
CPT/HCPCS: 36416; 85610

== ENCOUNTER → 2020-02-01 05:00 | Outpatient (REF) | payer MEDICARE, OTHER, SELFPAY ==
[2020-02-01 07:53] LABS: Erythrocyte Sedimentation Rate 36 mm/hr (0-30)
[2020-02-01 07:55] LABS: Hemoglobin 11.4 g/dL (12.0-15.0); Mean Corp Hgb Conc 30.8 g/dL (32-36); Mean Corpuscular Hgb 28.5 pg (27.0-32.0); Mean Corpuscular Volume 92.5 fL (81-99); POSITIVE COUNT YES; POSITIVE MORPHOLOGY YES; Platelet Count 292 K/mm3 (150-450); RBC Distribution Width CV 17.6 % (11.6-14.6); RBC Distribution Width SD 59.3 fl (35.1-43.9); White Blood Count 12.8 K/mm3 (4.4-11.0)
[2020-02-01 07:59] LABS: Differential Indicated MANUAL DIFF
[2020-02-01 08:01] LABS: International Normalized Ratio 2.5; Prothrombin Time (Protime)PT. 26.4 SECONDS (11.7-14.9)
[2020-02-01 08:20] LABS: Anion Gap 7 (5-15); BUN 33 mg/dL (7-18); BUN/Creat Ratio 15.2 RATIO (10-20); Calcium,Total 8.3 mg/dL (8.5-10.1); Chloride 103 mmol/L (98-107); Creatinine, Serum 2.17 mg/dL (0.55-1.02); EST Glomerular Filtration Rate 24 mL/min (>60); Est Glom Filt Rate - Afr Amer 28 mL/min (>60); Glucose 73 mg/dL (74-106); Potassium 4.4 mmol/L (3.5-5.1); Sodium Level 139 mmol/L (136-145)
[2020-02-01 08:30] LABS: Lymphocyte 18 % (19-41); Metamyelocyte 3 % (0-1); Monocyte 8 % (0-10); Myelocyte 1 (0-0); Neutrophil-Band 4 % (0-5); Neutrophil-Segmented 64 % (47-70); Total Cells Counted 100 (MANUAL DIFF)
[2020-02-01 08:31] LABS: Anisocytosis RARE
[2020-02-01 08:35] LABS: Absolute Neutrophil Count 8.7 X10^3/uL (2.0-7.7); Platelet Estimate ADEQUATE (ADEQ); Red Cell Morphology NORM C+C NORMAL (NORM C&C)
[2020-02-01 08:37] LABS: Promyelocyte 2 (0-0)
[2020-02-02 13:04] LABS: Pathologist Review Reviewed
== END ==
LOC: OLS.WHLTSB 05:00
PROVIDERS: Referring Provider Family Medicine; Visit Provider Family Medicine
DX: N18.3 Chronic kidney disease, stage 3 (moderate) (principal); Z91.81 History of falling; R53.81 Other malaise; R41.841 Cognitive communication deficit; R27.8 Other lack of coordination; R26.2 Difficulty in walking, not elsewhere classified; M62.81 Muscle weakness (generalized); I48.20 Chronic atrial fibrillation, unspecified
CPT/HCPCS: 36415; 80048; 85025; 85610; 85652

== ENCOUNTER → 2020-02-29 05:00 | Outpatient (REF) | payer MEDICARE, OTHER, SELFPAY ==
[2020-02-29 07:05] LABS: Prothrombin Time Fingerstick 37.2 SEC (11.9-14.4)
== END ==
LOC: OLS.WHLTSB 05:00
PROVIDERS: Referring Provider Family Medicine; Visit Provider Family Medicine
DX: I48.20 Chronic atrial fibrillation, unspecified (principal)
CPT/HCPCS: 36416; 85610

== ENCOUNTER → 2020-03-07 05:00 | Outpatient (REF) | payer MEDICARE, OTHER, SELFPAY ==
[2020-03-07 06:55] LABS: Prothrombin Time Fingerstick 30.5 SEC (11.9-14.4)
== END ==
LOC: OLS.WHLTSB 05:00
PROVIDERS: Visit Provider Family Medicine
DX: I48.20 Chronic atrial fibrillation, unspecified (principal); R53.81 Other malaise; R41.841 Cognitive communication deficit; R27.8 Other lack of coordination; R26.2 Difficulty in walking, not elsewhere classified; M62.81 Muscle weakness (generalized); Z91.81 History of falling
CPT/HCPCS: 36416; 85610

== ENCOUNTER → 2020-04-01 04:00 | Outpatient (REF) | payer MEDICARE, OTHER, SELFPAY ==
[2020-04-01 07:31] LABS: Prothrombin Time Fingerstick 21.3 SEC (11.9-14.4)
== END ==
LOC: OLS.WHLTSB 04:00
PROVIDERS: Referring Provider Family Medicine; Visit Provider Family Medicine
DX: I48.20 Chronic atrial fibrillation, unspecified (principal)
CPT/HCPCS: 36416; 85610

== ENCOUNTER → 2020-04-04 05:00 | Outpatient (REF) | payer MEDICARE, OTHER, SELFPAY ==
[2020-04-04 07:41] LABS: Prothrombin Time Fingerstick 17.7 SEC (11.9-14.4)
== END ==
LOC: OLS.WHLTSB 05:00
PROVIDERS: Referring Provider Family Medicine; Visit Provider Family Medicine
DX: Z91.81 History of falling (principal); R53.81 Other malaise; R41.841 Cognitive communication deficit; R27.8 Other lack of coordination; R26.2 Difficulty in walking, not elsewhere classified; M62.81 Muscle weakness (generalized); I48.20 Chronic atrial fibrillation, unspecified
CPT/HCPCS: 36416; 85610

== ENCOUNTER → 2020-05-16 06:00 | Outpatient (REF) | payer MEDICARE, OTHER, SELFPAY ==
[2020-05-16 08:46] LABS: Absolute Lymphocyte Count 2.26 X10^3/uL (0.83-4.51); Basophil% 0.6 % (0-1); Eosinophil# 0.13 X10^3/uL; Eosinophils% 0.8 % (0-5); Hematocrit 40.1 % (37-47); Hemoglobin 12.4 g/dL (12.0-15.0); Lymphocyte # 2.26 X10^3/ul (4.0); Lymphocyte % 13.7 % (19-41); Mean Corp Hgb Conc 30.9 g/dL (32-36); Mean Corpuscular Hgb 27.2 pg (27.0-32.0); Mean Corpuscular Volume 87.9 fL (81-99); Mean Platelet Vol. 12.1 fl (6.2-12.0); Monocyte# 1.46 X10^3/uL; Monocyte% 8.8 % (0-10); NRBC Flagged by Analyzer 0 % (0-5); Neutrophil # 12.04 X10^3/uL (2.7-7.7); Neutrophil % 72.7 % (47-70); Platelet Count 337 K/mm3 (150-450); RBC Distribution Width CV 16.7 % (11.6-14.6); RBC Distribution Width SD 53.8 fl (35.1-43.9); Red Blood Count 4.56 M/mm3 (4.2-5.4); White Blood Count 16.6 K/mm3 (4.4-11.0)
[2020-05-16 09:11] LABS: Anion Gap 10 (5-15); BUN 105 mg/dL (7-18); BUN/Creat Ratio 32.7 RATIO (10-20); Calcium,Total 7.5 mg/dL (8.5-10.1); Chloride 101 mmol/L (98-107); Creatinine, Serum 3.21 mg/dL (0.55-1.02); EST Glomerular Filtration Rate 15 mL/min (>60); Est Glom Filt Rate - Afr Amer 18 mL/min (>60); Glucose 81 mg/dL (74-106); Potassium 5.1 mmol/L (3.5-5.1); Sodium Level 134 mmol/L (136-145)
== END ==
LOC: OLS.WHLTSB 06:00
PROVIDERS: Referring Provider Family Medicine; Visit Provider Family Medicine
DX: R53.81 Other malaise (principal); R41.841 Cognitive communication deficit; R27.8 Other lack of coordination; R26.2 Difficulty in walking, not elsewhere classified; M62.81 Muscle weakness (generalized); Z91.81 History of falling
CPT/HCPCS: 36415; 80048; 85025

== ENCOUNTER → 2020-05-31 05:00 | Outpatient (REF) | payer MEDICARE, OTHER, SELFPAY ==
[2020-05-31 08:10] LABS: Prothrombin Time Fingerstick 14.3 SEC (11.9-14.4)
== END ==
LOC: OLS.WHLTSB 05:00
PROVIDERS: Visit Provider Family Medicine
DX: I48.20 Chronic atrial fibrillation, unspecified (principal); R53.81 Other malaise; R41.841 Cognitive communication deficit; R27.8 Other lack of coordination; R26.2 Difficulty in walking, not elsewhere classified; M62.81 Muscle weakness (generalized); Z91.81 History of falling
CPT/HCPCS: 36416; 85610